=== PATIENT | male | born 1950 | race Caucasian/White ===

== ENCOUNTER 2020-05-05 12:58 | Outpatient (REF) | payer MEDICARE, SELFPAY | END 2020-05-05 12:59 | disposition home or self-care (01) | LOC: HO.BBR 12:58 | PROVIDERS: Visit Provider Internal Medicine | DX: D75.1 Secondary polycythemia (principal) | CPT/HCPCS: 36415; 85018; 99195 ==

== ENCOUNTER 2020-07-14 12:39 | Outpatient (REF) | payer MEDICARE, SELFPAY | END 2020-07-14 12:40 | disposition home or self-care (01) | LOC: HO.BBR 12:39 | PROVIDERS: Visit Provider Internal Medicine | DX: D75.1 Secondary polycythemia (principal) | CPT/HCPCS: 36415; 85014; 85018; 99195 ==

== ENCOUNTER 2020-09-22 12:55 | Outpatient (REF) | payer MEDICARE, SELFPAY | END 2020-09-22 12:56 | disposition home or self-care (01) | LOC: HO.BBR 12:55 | PROVIDERS: Visit Provider Internal Medicine | DX: D75.1 Secondary polycythemia (principal) | CPT/HCPCS: 36415; 85014; 85018; 99195 ==

== ENCOUNTER 2020-12-01 13:13 | Outpatient (REF) | payer MEDICARE, SELFPAY | END 2020-12-01 13:14 | disposition home or self-care (01) | LOC: HO.BBR 13:13 | PROVIDERS: Visit Provider Internal Medicine | DX: D75.1 Secondary polycythemia (principal) | CPT/HCPCS: 85018; 99195 ==

== ENCOUNTER 2021-02-06 13:04 | Outpatient (REF) | payer MEDICARE, SELFPAY | END 2021-02-06 13:05 | disposition home or self-care (01) | LOC: HO.BBR 13:04 | PROVIDERS: Visit Provider Internal Medicine | DX: D75.1 Secondary polycythemia (principal) | CPT/HCPCS: 85014; 85018; 99195 ==

== ENCOUNTER 2021-04-06 13:54 | Outpatient (REF) | payer MEDICARE, SELFPAY | END 2021-04-06 13:55 | disposition home or self-care (01) | LOC: HO.BBR 13:54 | PROVIDERS: Visit Provider Internal Medicine | DX: D75.1 Secondary polycythemia (principal) | CPT/HCPCS: 85014; 85018; 99195 ==

== ENCOUNTER 2021-04-16 13:15 | Outpatient (REF) | payer MEDICARE, SELFPAY | END 2021-04-16 13:16 | disposition home or self-care (01) | LOC: HO.BBR 13:15 | PROVIDERS: Visit Provider Internal Medicine | DX: D75.1 Secondary polycythemia (principal) | CPT/HCPCS: 85018; 99195 ==

== ENCOUNTER 2021-06-16 12:32 | Outpatient (REF) | payer MEDICARE, SELFPAY | END 2021-06-16 12:33 | disposition home or self-care (01) | LOC: HO.BBR 12:32 | PROVIDERS: Visit Provider Internal Medicine | DX: D75.1 Secondary polycythemia (principal) | CPT/HCPCS: 85018; 99195 ==

== ENCOUNTER 2021-08-17 13:03 | Outpatient (REF) | payer MEDICARE, SELFPAY | END 2021-08-17 13:04 | disposition home or self-care (01) | LOC: HO.BBR 13:03 | PROVIDERS: Visit Provider Internal Medicine | DX: Z13.89 Encounter for screening for other disorder (principal) ==

== ENCOUNTER 2021-10-19 12:54 | Outpatient (REF) | payer MEDICARE, SELFPAY | END 2021-10-19 12:55 | disposition home or self-care (01) | LOC: HO.BBR 12:54 | PROVIDERS: Visit Provider Internal Medicine | DX: D75.1 Secondary polycythemia (principal) | CPT/HCPCS: 85018; 99195 ==

== ENCOUNTER 2021-12-21 12:55 | Outpatient (REF) | payer MEDICARE, SELFPAY | END 2021-12-21 12:56 | disposition home or self-care (01) | LOC: HO.BBR 12:55 | PROVIDERS: Visit Provider Internal Medicine | DX: D75.1 Secondary polycythemia (principal) | CPT/HCPCS: 85018; 99195 ==

== ENCOUNTER 2022-02-16 12:33 | Outpatient (REF) | payer MEDICARE, SELFPAY | END 2022-02-16 12:34 | disposition home or self-care (01) | LOC: HO.BBR 12:33 | PROVIDERS: Visit Provider Internal Medicine | DX: D75.1 Secondary polycythemia (principal) | CPT/HCPCS: 85014; 85018; 99195 ==

== ENCOUNTER 2022-05-24 12:58 | Outpatient (REF) | payer MEDICARE, SELFPAY | END 2022-05-24 12:59 | disposition home or self-care (01) | LOC: HO.BBR 12:58 | PROVIDERS: Visit Provider Internal Medicine | DX: D75.1 Secondary polycythemia (principal) | CPT/HCPCS: 85018; 99195 ==

== ENCOUNTER 2022-08-23 12:36 | Outpatient (REF) | payer MEDICARE, SELFPAY | END 2022-08-23 12:37 | disposition home or self-care (01) | LOC: HO.BBR 12:36 | PROVIDERS: Visit Provider Internal Medicine | DX: D75.1 Secondary polycythemia (principal) | CPT/HCPCS: 85014; 85018; 99195 ==

== ENCOUNTER 2022-11-22 12:57 | Outpatient (REF) | payer MEDICARE, SELFPAY | END 2022-11-22 12:58 | disposition home or self-care (01) | LOC: HO.BBR 12:57 | PROVIDERS: Visit Provider Internal Medicine | DX: D75.1 Secondary polycythemia (principal) | CPT/HCPCS: 85014; 85018; 99195 ==

== ENCOUNTER 2023-02-15 13:00 | Outpatient (AMB) | payer MEDICARE, SELFPAY ==
--- NOTE | 2023-02-15 13:07 | A.OFFPC_ITS ---
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 Required: No Accompanied by: Self / Same As Patient Allergies No Known Allergies Allergy (Verified 02/15/23 14:01) Medication List - Last Reconciled 02/15/23 by Micah Auguste CNP albuterol sulfate 90 mcg/actuation 2 puffs inhalation Q6H PRN apixaban (Eliquis) 5 mg PO BID atorvastatin 80 mg PO DAILY hydroxyurea 500 mg PO DAILY tamsulosin 0.4 mg PO BEDTIME umeclidinium-vilanterol 62.5-25 mcg/actuation (Anoro Ellipta) 1 inh inhalation DAILY Tobacco use date assessed: 02/15/23 Fall risk assessment: No Falls in past year Last assessed Fall Risk: 02/15/23 Dental Screening Dental Screen Date: 02/15/23 Did you have a dental visit in the last 12 months?: No Did you have a dental problem in the last 6 months where you did not have access to dental care?: No Was dental information given to patient?: Yes HPI HPI Comments History of Present Illness Details 72-year-old male presents to critical access hospital care. He notes he was last evaluated by his former PCP at [facility] in [place], [place] 3 years. He does not recall the last time he had routine blood work done. He reports PMH significant for polycythemia vera, COPD, HLD, enlarged prostate, and arrhythmia. He notes the has been taking his medications as prescribed. He is on Hydroxyurea for polycythemia vera and has been going to [facility] [place] blood withdrawal every 12 weeks. He states he has been smoking cigarette for the past 60 years. He smoked as many as 3 packs daily for 4-5 years in the 1980s and 1990s. He reports history of smoking a pack and half to 2 packs for 30 years. He states he smokes a maximum of 8 cigarettes daily in the past 2 months. [facility]LY [facility] Medical History (Updated 02/15/23 @ 14:39 by Micah Auguste CNP) COPD (chronic obstructive pulmonary disease) Stroke Surgical History (Updated 02/15/23 @ 13:25 by Amy Ragsdale MA) H/O right knee surgery Family History (Updated 02/15/23 @ 13:26 by Amy Ragsdale MA) Mother Hodgkin disease Father Clotting disorder Social History Housing: House Patient Tobacco Use Status: Current everyday Tobacco user Cigarettes Per Day: 8 Years Smoked: 60 e-Cigarette/Vaping Use: Never Used service: No Current occupational status: retired Cognitive needs: No Hearing needs: No Vision needs: No Questionnaire PHQ-9 Over the last 2 weeks, how often have you been bothered by any of the following problems? 1. Little interest or pleasure in doing things: not at all 2. Feeling down, depressed, or hopeless: not at all 3. Trouble falling or staying asleep, or sleeping too much: not at all 4. Feeling tired or having little energy: not at all 5. Poor appetite or overeating: not at all 6. Feeling bad about yourself - or that you are a failure or have let yourself or your family down: not at all 7. Trouble concentrating on things, such as reading the newspaper or watching television: not at all 8. Moving or speaking so slowly that other people could have noticed. Or the opposite - being so fidgety or restless that you have been moving around a lot more than usual: not at all 9. Thoughts that you would be better off or of hurting yourself in some way: not at all Total score: 0 Depression Screening Interpretation: Negative Source: Developed by Drs. Leon Brandon, Maria G Funes, Sotero Ryan and colleagues, with an educational maryana from [employer]. Thrive Questionnaire Date Thrive assessed: 02/15/23 I am a: Patient What is your living situation today?: I have a steady place to live Within the past 12 months, did the food you bought not last and you didn't have the money to get more?: Never true Within the past 12 months, did you worry whether your food would run out before you got money to buy more?: Never true Do you have trouble paying for medicines?: No Do you have trouble getting transportation to medical appointments?: No Do you have trouble paying your heating and electricity bill?: No Do you have trouble taking care of your child, family member or friend?: No Do you have trouble with day-to-day activities such as bathing, preparing meals, shopping, managing finances, etc.?: No Are you currently unemployed and looking for a job?: No Are you interested in more education?: No Please select the resources that you would like help with: None Currently or been in a relationship where the following occur: no concerns reported AUDIT C Alcohol Use Questionnaire (AUDIT-C) 1. How often do you have a drink containing alcohol?: Never 3. How often do you have six or more drinks on one occasion?: Never Total Score: 0 CINDY-7 AMB Questionnaire CINDY-7 Date CINDY - 7 assessed: 02/15/23 Feeling nervous, anxious, or on edge: 0 = Not at all Not being able to stop or control worryin = Not at all Worrying too much about different things: 0 = Not at all Trouble relaxin = Not at all Being so restless that it is hard to sit still: 0 = Not at all Becoming easily annoyed or irritable: 0 = Not at all Feeling afraid as if something awful might happen: 0 = Not at all Total CINDY-7 score (0-4 normal; 5-9 mild; 10-14 moderate; 15-21 severe): 0 Source: Developed by Drs. Leon Brandon, Maria G Funes, Sotero Ryan and colleagues, with an educational maryana from [employer]. Review of Systems Const Details: Const Denies chills, Denies fatigue, Denies fever(s), Denies headache(s) and Denies weakness ENT Denies dizziness and Denies headache(s) Card Denies chest pain, Denies lightheadedness, Denies dyspnea and Denies other (Palpitations) Resp Denies cough, Denies dyspnea, Denies wheezing and Denies other ( shortness of breath) GI Denies abdominal pain, Denies melena, Denies hematochezia, Denies change in bowel habits, Denies dyspepsia and Denies nausea Denies hematuria and Denies dysuria Musc Denies abnormal gait, Denies myalgias, Denies arthralgias, Denies numbness and Denies tingling Skin/Breast Denies rash, Denies unusual bruising and Denies wounds Neuro Denies abnormal gait, Denies dizziness, Denies headache(s), Denies memory loss, Denies numbness, Denies Sensory deficit (Neuro), Denies tingling and Denies weakness Psych Denies anxiety, Denies depression, Denies memory loss Endo Denies cold intolerance, Denies fatigue, Denies heat intolerance, Denies polydipsia and Denies polyuria Aller/Immun Denies wheezing Physical exam (Primary Care) Vital Signs: Last Vital Signs Temp 97.5 F 02/15/23 13:10 Pulse 82 02/15/23 13:10 Resp 13 02/15/23 13:10 BP 140/74 H 02/15/23 13:10 Pulse Ox 94 02/15/23 13:10 Oxygen Delivery Method Room Air 02/15/23 13:10 BMI result Body Mass Index 35.3 Tobacco/Smoking Status: Tobacco use Status Tobacco use date assessed 02/15/23 02/15/23 13:27 Patient Tobacco Use Status Current everyday Tobacco 02/15/23 13:27 e-Cigarette/Vaping Use Never Used 02/15/23 13:27 PHQ-9: PHQ-9 Score PHQ-9: Total score 0 02/15/23 13:27 Depression Screening Interpretation: Negative Thrive Assessment: Date of Thrive Assessment Date Thrive assessed 02/15/23 02/15/23 13:27 Currently or been in a relationship where the following occur: no concerns reported Const Other: General: no acute distress and well developed Nutritional Appearance: well nourished Orientation/consciousness: patient oriented x3 HENMT Head: Yes normocephalic and Yes atraumatic Eyes General: appearance normal, both eyes and all related structures Pupils: Equal, round and reactive pupils present EOM: EOMs intact bilaterally Resp Effort & Inspection: normal respiratory effort Auscultation: clear to auscultation bilaterally Cardio Rate: regular rate Rhythm: regular rhythm Heart sounds: S1 normal heart sound present, S2 normal heart sound present, no gallops, no murmurs and no rubs GI Palpation (GI): No Abdominal aortic bruit present, Soft to palpation, nontender, No hepatosplenomegaly present and No Rebound tenderness present Auscultation: normal bowel sounds General: Yes no CVA tenderness Back/Spine/Pelvis Back: no CVA tenderness Cervical Spine: cervical ROM normal and No Cervical spine tenderness Thoracic/Lumbar Spine: thoraco-lumbar ROM normal, No pain with thoraco-lumbar ROM, No thoracic spinal tenderness and No lumbar spinal tenderness Extrem General: Yes normal to inspection, No edema and No calf tenderness Skin General: warm and dry. Normal skin color. Normal skin turgor Lesions: no lesions Rashes: no rashes Trauma: no lacerations or abrasions Wounds: no wounds Nails: normal Neuro General: patient oriented x3, gait normal and no focal neuro deficit Cranial nerves: Yes Equal, round and reactive pupils present Cognition (Neuro): normal cognition Gait exam (Neuro): Normal gait present Sensory Exam: No Sensory deficit (Neuro) Psych Appearance: grossly normal Affect: normal affect Attitude: cooperative Thought process: Normal thought process present Assessment and Plan Assessment & Plan (1) Polycythemia vera: Code(s): D45 - Polycythemia vera Plan: He notes history of polycythemia vera, on Hydroxyurea, and has been going to [facility] for blood withdrawal every 12 weeks. Continue with current treatment regimen Follow-up with concerns or symptoms Verbalized understanding and agreed with treatment plan. (2) COPD (chronic obstructive pulmonary disease): Code(s): J44.9 - Chronic obstructive pulmonary disease, unspecified Plan: Reports h/o COPD No acute symptoms Albuterol and Anoro Ellipta inhalers as prescribed Follow-up with symptoms or concerns Verbalized understanding and agreed with treatment plan (3) BPH (benign prostatic hyperplasia): Code(s): N40.0 - Benign prostatic hyperplasia without lower urinary tract symptoms Plan: Reports history of BPH, on tamsulosin No acute symptoms Continue with current treatment regimen Follow-up with new or worsening symptoms Verbalized understanding and agreed with treatment plan. (4) Hyperlipidemia: Code(s): E78.5 - Hyperlipidemia, unspecified Plan: Reports history of high cholesterol, on atorvastatin Atorvastatin as prescribed Routine labs, including lipid panel ordered. Will review results and make changes to his care plan if warranted Follow-up in 1 month for a physical exam and review of lab results Verbalized understanding and agreed with treatment plan. (5) Smoking: Code(s): F17.200 - Nicotine dependence, unspecified, uncomplicated Plan: He states he has been smoking cigarette for the past 60 years. He smoked as many as 3 packs daily for 4-5 years in the 1980s and . He reports history of smoking a pack and half to 2 packs for 30 years. He states he smokes a maximum of 8 cigarettes daily in the past 2 months. Declines treatment for smoking cessation Smoking cessation encouraged May contact his PCP for treatment a smoking cessation Verbalized understanding and agreed with plan. (6) Laboratory tests ordered as part of a complete physical exam (CPE): Code(s): Z00.00 - Encounter for general adult medical examination without abnormal findings Plan: Fasting labs ordered as part of a complete physical exam. Advised to fast for at least 10 hours before getting labs drawn. May drink water Verbalized understanding and agreed with treatment plan. Orders: Orders Comprehensive [place]. Panel Fast Today Z00.00 - Encounter for general adult medical examination without abnormal findings Lipid Panel Today Z00.00 - Encounter for general adult medical examination without abnormal findings PSA, Ultra Sensitive Today Z00.00 - Encounter for general adult medical examination without abnormal findings TSH reflex Free T4 Today Z00.00 - Encounter for general adult medical examination without abnormal findings Complete Blood Count Auto Diff Today Z00.00 - Encounter for general adult medical examination without abnormal findings UA CC w/rflx Micro + Cult Today Z00.00 - Encounter for general adult medical examination without abnormal findings Coding Level of Care Code New Pt Level 3 (06805) Diagnoses Polycythemia vera D45 COPD (chronic obstructive pulmonary disease) J44.9 BPH (benign prostatic hyperplasia) N40.0 Hyperlipidemia E78.5 Smoking F17.200 Laboratory tests ordered as part of a complete physical exam (CPE) Z00.00
[2023-02-15 13:10] VITALS: BP 140/74; PULSE 82; RESP 13; TEMP 36.4; O2SAT 94; BMI 35.3
== END 2023-02-15 14:30 | disposition home or self-care (01) ==
PROVIDERS: PCP Nurse Practitioner Family; Visit Provider Nurse Practitioner Family
DX: D45 Polycythemia vera (principal); J44.9 Chronic obstructive pulmonary disease, unspecified; F17.210 Nicotine dependence, cigarettes, uncomplicated; N40.0 Benign prostatic hyperplasia without lower urinary tract symptoms; E78.5 Hyperlipidemia, unspecified
CPT/HCPCS: 99203

== ENCOUNTER 2023-02-28 12:56 | Outpatient (REF) | payer MEDICARE, SELFPAY | END 2023-02-28 12:57 | disposition home or self-care (01) | LOC: HO.BBR 12:56 | PROVIDERS: PCP Nurse Practitioner Family; Visit Provider Internal Medicine | DX: D75.1 Secondary polycythemia (principal) | CPT/HCPCS: 85018; 99195 ==

== ENCOUNTER 2023-03-11 11:33 | Outpatient (REF) | payer MEDICARE, SELFPAY ==
[2023-03-11 14:23] LABS: MANUAL DIFF FLAG NO
[2023-03-11 14:26] LABS: Basophils Absolute Auto 0.1 X10*3/uL (0.0-0.2); Basophils Percent Auto 0.8 % (0-2); Eosinophils Absolute Auto 0.1 X10*3/uL (0.0-0.4); Eosinophils Percent Auto 0.5 % (0-4); Hematocrit 48.8 % (42.0-52.0); Hemoglobin 15.3 g/dl (14.0-18.0); Imm Gran Abs Auto 0.04 X10*3/uL (0.00-0.03); Imm Gran Pct Auto 0.4 % (0.0-0.4); Lymphocytes Percent Auto 29.7 % (20-40); Mean Corpuscular HGB Conc 31.4 g/dl (31.0-36.0); Mean Corpuscular Hemoglobin 32.3 pg (27.0-33.0); Mean Platelet Volume 10.1 fL (9.4-12.4); Monocytes Percent Auto 9.8 % (2-11); Neutrophils Percent Auto 58.8 % (45-73); Platelet Count 406 X10*3/uL (160-400); Red Blood Count 4.74 X10*6/uL (4.60-5.80); Red Cell Distribution Width 16.8 % (11.0-16.0); White Blood Count 10.2 X10*3/uL (4.8-10.8)
[2023-03-11 14:51] LABS: Alanine Aminotransferase 12 U/L (0-40); Alkaline Phosphatase 106 U/L (39-117); Anion Gap 16 (12-20); Aspartate Amino Transferase 21 U/L (5-37); Bilirubin Total 1.3 mg/dL (0.0-1.0); Blood Urea Nitrogen 14 mg/dL (9-16); Calcium 9.5 mg/dL (8.4-10.2); Carbon Dioxide 19 mmol/L (22-29); Chloride 109 mmol/L (96-108); Cholesterol 102 mg/dL (<200); Estimated Glomerular Filt Rate > 60; Glucose Fasting 112 mg/dL (60-99); HDL Cholesterol 30 mg/dL (>40); LDL Cholesterol Calculated 47 mg/dL (<100); Potassium 4.6 mmol/L (3.3-5.1); Sodium 139 mmol/L (135-145); Total Protein 7.6 g/dL (6.5-8.0); Triglycerides 126 mg/dL (<150)
[2023-03-11 15:07] LABS: TSH reflex Free T4 1.21 uIU/mL (0.32-4.0)
[2023-03-19 11:59] LABS: PSA, Ultra Sensitive 0.87 ng/mL
== END 2023-03-11 11:34 | disposition home or self-care (01) ==
LOC: HO.WFDLDS 11:33
PROVIDERS: Visit Provider Nurse Practitioner Family
DX: Z00.00 Encounter for general adult medical examination without abnormal findings (principal); Z12.5 Encounter for screening for malignant neoplasm of prostate
CPT/HCPCS: 36415; 80053; 80061; 84153; 84443; 85025

== ENCOUNTER 2023-03-15 13:58 | Outpatient (REF) | payer MEDICARE, SELFPAY ==
[2023-03-15 14:16] LABS: Appearance Urine Clear; Color Urine Yellow; Glucose Urine UA Negative (Negative); Leukocyte Esterase Urine Negative (Negative); Nitrite Urine Negative (Negative); Specific Gravity - Urine 1.025 (1.005-1.025); Urine Blood Negative (Negative); Urine Ketones Negative (Negative); Urine Protein Negative (Neg-Trace)
== END 2023-03-15 13:59 | disposition home or self-care (01) ==
LOC: HO.LNP 13:58
PROVIDERS: Visit Provider Nurse Practitioner Family
DX: Z00.00 Encounter for general adult medical examination without abnormal findings (principal)
CPT/HCPCS: 81003

== ENCOUNTER 2023-03-28 15:01 | Outpatient (AMB) | payer MEDICARE, SELFPAY ==
--- NOTE | 2023-03-28 15:06 | A.OFFPC_ITS ---
Vital Signs 03/28/23 15:08 Height 5 ft 8 in Weight 236 lb BMI 35.9 BP 124/70 Blood Pressure Location Rt brachial Respiration 16 Pulse 75 Pulse Source Pulse Oximeter Temp 97.0 F Temp Source Oral Pulse Oximetry (%) 95 Oxygen Delivery Method Room Air Intake Visit Reasons: 1 mth follow up CPE Intake Note: Patient is here for a physical today. Allergies No Known Allergies Allergy (Verified 03/28/23 15:24) Medication List - Last Reconciled 03/28/23 by Micah Auguste CNP albuterol sulfate 90 mcg/actuation 2 puffs inhalation Q6H PRN apixaban (Eliquis) 5 mg PO BID atorvastatin 80 mg PO DAILY hydroxyurea 500 mg PO DAILY tamsulosin 0.4 mg PO BEDTIME umeclidinium-vilanterol 62.5-25 mcg/actuation (Anoro Ellipta) 1 inh inhalation DAILY Tobacco use date assessed: 03/28/23 Fall risk assessment: No Falls in past year Last assessed Fall Risk: 03/28/23 Dental Screening Dental Screen Date: 03/28/23 Did you have a dental visit in the last 12 months?: No Did you have a dental problem in the last 6 months where you did not have access to dental care?: No Was dental information given to patient?: Patient declined HPI HPI Comments History of Present Illness Details 73-year-old male presents for a complete physical exam. He reports PMH significant for polycythemia vera, COPD, HLD, enlarged prostate, and arrhythmia. He has history of CVA. He notes the has been taking his medications as prescribed. He is on Hydroxyurea for polycythemia vera and has been going to [facility] for blood withdrawal every 12 weeks. He is on Eliquis. He established care last month. Routine fasting labs and urinalysis were ordered. He offers no complaints and denies acute symptoms. Uses a walker for long distances. He notes that he is followed by [facility] cardiology and pulmonology, and [facility] hematology. He states that he has never had colonoscopy and declines testing. He states he has been smoking cigarette for the past 60 years. He smoked as many as 3 packs daily for 4-5 years in the 1980s and 1990s. He reports history of smoking a pack and half to 2 packs for 30 years. He states he smokes a maximum of 8 cigarettes daily in the past 2 months. He reports annual lungs CT for lung cancer screening, last imaging was in July, at [facility]: normal. [facility]LY [facility] Medical History (Updated 03/28/23 @ 15:56 by Micah Auguste CNP) Stroke COPD (chronic obstructive pulmonary disease) Surgical History (Updated 02/15/23 @ 13:25 by Amy Ragsdale MA) H/O right knee surgery Family History (Updated 02/15/23 @ 13:26 by Amy Ragsdale MA) Mother Hodgkin disease Father Clotting disorder Social History Housing: House Patient Tobacco Use Status: Current everyday Tobacco user Cigarettes Per Day: 8 Years Smoked: 60 e-Cigarette/Vaping Use: Never Used service: No Current occupational status: retired Cognitive needs: No Hearing needs: No Vision needs: No Questionnaire Thrive Questionnaire Date Thrive assessed: 02/15/23 CINDY-7 AMB Questionnaire CINDY-7 Date CINDY - 7 assessed: 02/15/23 Source: Developed by Drs. Leon Brandon, Maria G Funes, Sotero Ryan and colleagues, with an educational maryana from [email or web address] Review of Systems Const Details: Denies chills, Denies fatigue, Denies fever(s), Denies headache(s) and Denies weakness HEENT Denies change in vision, Denies dizziness, Denies headache(s), Denies hearing loss, Denies nasal congestion, Denies sinus pain, Denies sinus pressure and Denies sore throat Card Denies chest pain, Denies lightheadedness, Denies dyspnea and Denies other (palpitations) Resp Denies cough, Denies dyspnea and Denies wheezing GI Denies abdominal pain, Denies melena, Denies hematochezia, Denies change in bowel habits, Denies dyspepsia and Denies nausea Denies hematuria and Denies dysuria Musc Denies abnormal gait, Denies myalgias, Denies arthralgias, Denies numbness and Denies tingling Skin/Breast Denies rash, Denies unusual bruising and Denies wounds Neuro Denies abnormal gait, Denies dizziness, Denies headache(s), Denies memory loss, Denies numbness, Denies Sensory deficit (Neuro), Denies tingling and Denies weakness Psych Denies anxiety, Denies depression and Denies memory loss Endo Denies cold intolerance, Denies fatigue, Denies heat intolerance, Denies polydipsia and Denies polyuria Ilir/Lymph Denies easy bleeding and Denies easy bruising Aller/Immun Denies wheezing Physical exam (Primary Care) BMI result Body Mass Index 35.9 Tobacco/Smoking Status: Tobacco use Status Tobacco use date assessed 02/15/23 03/28/23 15:07 Patient Tobacco Use Status Current everyday Tobacco 03/28/23 15:07 e-Cigarette/Vaping Use Never Used 03/28/23 15:07 Thrive Assessment: Date of Thrive Assessment Date Thrive assessed 02/15/23 03/28/23 15:07 Const Other: General: no acute distress, well developed, alert and awake Nutritional Appearance: well nourished Orientation/consciousness: patient oriented x3 HENMT Head: Yes normocephalic and Yes atraumatic Ears: hearing grossly normal bilaterally and TM's normal bilaterally General nose exam: Normal external nose present and Normal nares present Mouth: Normal oral and palatal mucosa present and moist mucous membranes Teeth and gingiva: dentition normal Throat: Yes oropharynx normal Eyes Pupils: Equal, round and reactive pupils present and Pupil accommodation reflex normal EOM: EOMs intact bilaterally Neck Neck: Yes normal visual inspection, Yes no lymphadenopathy and Yes trachea midline Thyroid: Thyroid normal Carotids: no bruits Lymphatic: no lymphadenopathy noted Chest Chest palpation & inspection: normal inspection of the chest Resp Effort & Inspection: normal respiratory effort Auscultation: clear to auscultation bilaterally Cardio Rate: regular rate Rhythm: regular rhythm Heart sounds: S1 normal heart sound present, S2 normal heart sound present, no gallops, no murmurs and no rubs Bruits: no abdominal aortic bruits and no carotid bruits GI Palpation (GI): No Abdominal aortic bruit present, Soft to palpation, nontender, No hepatosplenomegaly present and No Rebound tenderness present Auscultation: normal bowel sounds General: Yes no CVA tenderness Back/Spine/Pelvis Back: no CVA tenderness Cervical Spine: cervical ROM normal and No Cervical spine tenderness Thoracic/Lumbar Spine: thoraco-lumbar ROM normal, No pain with thoraco-lumbar ROM, No thoracic spinal tenderness and No lumbar spinal tenderness Skin General: warm and dry. Normal skin color. Normal skin turgor Lesions: no lesions Rashes: no rashes Trauma: no lacerations or abrasions Wounds: no wounds Nails: normal Neuro General: patient oriented x3, gait normal and CN's II-XI intact bilaterally Cranial nerves: Yes Equal, round and reactive pupils present Cognition (Neuro): normal cognition Gait exam (Neuro): Normal gait present Motor exam (neuro): 5/5 motor strength present throughout Sensory Exam: No Sensory deficit (Neuro) Deep tendon reflexes (DTR's): Right patellar reflex intensity grade: 2+ and Left patellar reflex intensity grade: 2+ Extrem General: Yes normal to inspection, No edema and No calf tenderness Psych Appearance: grossly normal Affect: normal affect Attitude: cooperative Thought process: Normal thought process present Assessment and Plan Assessment & Plan (1) Normal physical examination, routine: Code(s): Z00.00 - Encounter for general adult medical examination without abnormal findings Plan: No significant physical restrictions or limitations noted Advised to continue to ambulate with his walker for long distances Continue with current treatment regimen Follow-up in 3 months for health maintenance. Return sooner with symptoms or concerns Verbalized understanding and agreed with treatment plan. (2) Elevated fasting glucose: Code(s): R73.01 - Impaired fasting glucose Plan: Recent labs reviewed with the patient. Fasting blood glucose was elevated, 112. Will repeat fasting glucose. Advised to fast for 10-12 hours before getting blood work done. Will review results and make changes to his care plan if warranted. Verbalized understanding and agreed with the treatment plan. (3) Hyperlipidemia: Code(s): E78.5 - Hyperlipidemia, unspecified Plan: Normal lipid levels except for low HDL, 30. Continue to take atorvastatin as prescribed. Advised to limit foods high in saturated fat and avoid foods high trans fat. Routine exercise encouraged. Verbalized understanding and agreed with treatment plan. (4) Obesity (BMI 35.0-39.9 without comorbidity): Code(s): E66.9 - Obesity, unspecified Plan: He weighs 236 lb, BMI is 35.9 Declines dietitian/group leader semiconductor processing or weight management referral He notes that he will make healthy dietary changes He admits to not exercising. Encouraged to expand his activities He may inform his provider if he changes his mind on group leader [employer] processing/dietitian or weight management referral Follow-up with symptoms or concerns Verbalized understanding and agreed with treatment plan. Orders: Orders Glucose Fasting Today R73.01 - Impaired fasting glucose Coding Level of Care Code Est Pt Prev Care >65y(93330) Diagnoses Normal physical examination, routine Z00.00 Elevated fasting glucose R73.01 Hyperlipidemia E78.5 Obesity (BMI 35.0-39.9 without comorbidity) E66.9
[2023-03-28 15:08] VITALS: BP 124/70; PULSE 75; RESP 16; TEMP 36.1; O2SAT 95; BMI 35.9
== END 2023-03-28 15:52 | disposition home or self-care (01) ==
PROVIDERS: PCP Nurse Practitioner Family; Visit Provider Nurse Practitioner Family
DX: Z00.00 Encounter for general adult medical examination without abnormal findings (principal); E66.9 Obesity, unspecified; Z68.35 Body mass index [BMI] 35.0-35.9, adult; R73.01 Impaired fasting glucose; E78.5 Hyperlipidemia, unspecified; F17.210 Nicotine dependence, cigarettes, uncomplicated
CPT/HCPCS: 99397

== ENCOUNTER 2023-05-30 12:50 | Outpatient (REF) | payer MEDICARE, SELFPAY | END 2023-05-30 12:51 | disposition home or self-care (01) | LOC: HO.BBR 12:50 | PROVIDERS: PCP Nurse Practitioner Family; Visit Provider Internal Medicine | DX: D75.1 Secondary polycythemia (principal) | CPT/HCPCS: 85014; 85018; 99195 ==

== ENCOUNTER 2023-07-07 11:39 | Outpatient (REF) | payer MEDICARE, SELFPAY ==
[2023-07-07 14:43] LABS: Glucose Fasting 114 mg/dL (60-99)
== END 2023-07-07 11:40 | disposition home or self-care (01) ==
LOC: HO.WFDLDS 11:39
PROVIDERS: Visit Provider Nurse Practitioner Family
DX: R73.01 Impaired fasting glucose (principal)
CPT/HCPCS: 36415; 82947

== ENCOUNTER 2023-07-11 14:55 | Outpatient (AMB) | payer MEDICARE, SELFPAY ==
--- NOTE | 2023-07-11 15:00 | MHC.PC.OV ---
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 Accompanied by: Self / Same As Patient Allergies No Known Allergies Allergy (Verified 07/11/23 15:17) Medication List - Last Reconciled 07/11/23 by Micah Auguste CNP albuterol sulfate 90 mcg/actuation 2 puffs inhalation Q6H PRN apixaban (Eliquis) 5 mg PO BID atorvastatin 80 mg PO DAILY hydroxyurea 500 mg PO DAILY tamsulosin 0.4 mg PO BEDTIME umeclidinium-vilanterol 62.5-25 mcg/actuation (Anoro Ellipta) 1 inh inhalation DAILY Tobacco use date assessed: 07/11/23 Last assessed Fall Risk: 07/11/23 Dental Screening Dental Screen Date: 07/11/23 Did you have a dental visit in the last 12 months?: No Did you have a dental problem in the last 6 months where you did not have access to dental care?: No Was dental information given to patient?: Patient declined HPI HPI Comments History of Present Illness Details 73-year-old male presents for health maintenance follow-up He admits to taking his medications as prescribed without adverse reactions He notes that he follows cardiology, pulmonology, and oncology/hematology as planned He reports weak urine stream and difficulty initiating urine. No pain or discharge with urination. He notes that he stopped taking tamsulosin 2 weeks ago. He thought that the medication was a sleep aid. He notes his symptoms before he stopped the medication and has not noticed an changes. He has not been evaluated by urology since his old PCP retired 5-6 years ago [facility] Medical History Stroke COPD (chronic obstructive pulmonary disease) Surgical History H/O right knee surgery Family History Mother Hodgkin disease Father Clotting disorder Social History Housing: House Patient Tobacco Use Status: Current everyday Tobacco user Cigarettes Per Day: 8 Years Smoked: 60 e-Cigarette/Vaping Use: Never Used service: No Current occupational status: retired Cognitive needs: No Hearing needs: No Vision needs: Yes Questionnaire Thrive Questionnaire Date Thrive assessed: 02/15/23 CINDY-7 AMB Questionnaire CINDY-7 Date CINDY - 7 assessed: 02/15/23 Source: Developed by Drs. Leon Brandon, Maria G Funes, Sotero Ryan and colleagues, with an educational maryana from [employer]. Review of Systems Const Details: Const Denies chills, Denies fatigue, Denies fever(s), Denies headache(s) and Denies weakness ENT Denies dizziness and Denies headache(s) Card Denies chest pain, Denies lightheadedness, Denies dyspnea and Denies other (Palpitations) Resp Denies cough, Denies dyspnea, Denies wheezing and Denies other ( shortness of breath) GI Denies abdominal pain, Denies melena, Denies hematochezia, Denies change in bowel habits, Denies dyspepsia and Denies nausea Reports as per HPI Musc Denies abnormal gait, Denies myalgias, Denies arthralgias, Denies numbness and Denies tingling Skin/Breast Denies rash, Denies unusual bruising and Denies wounds Neuro Denies abnormal gait, Denies dizziness, Denies headache(s), Denies memory loss, Denies numbness, Denies Sensory deficit (Neuro), Denies tingling and Denies weakness Psych Denies anxiety, Denies depression, Denies memory loss Endo Denies cold intolerance, Denies fatigue, Denies heat intolerance, Denies polydipsia and Denies polyuria Aller/Immun Denies wheezing Physical exam (Primary Care) Vital Signs: Last Vital Signs Temp 97.6 F 07/11/23 15:06 Pulse 88 07/11/23 15:06 Resp 14 07/11/23 15:06 BP 122/70 07/11/23 15:06 Pulse Ox 96 07/11/23 15:06 Oxygen Delivery Method Room Air 07/11/23 15:06 BMI result Body Mass Index 34.4 Tobacco/Smoking Status: Tobacco use Status Tobacco use date assessed 07/11/23 07/11/23 15:15 Patient Tobacco Use Status Current everyday Tobacco 07/11/23 15:01 e-Cigarette/Vaping Use Never Used 07/11/23 15:01 Thrive Assessment: Date of Thrive Assessment Date Thrive assessed 02/15/23 07/11/23 15:01 Const Other: General: no acute distress and well developed Nutritional Appearance: well nourished Orientation/consciousness: patient oriented x3 HENMT Head: Yes normocephalic and Yes atraumatic Eyes General: appearance normal, both eyes and all related structures Pupils: Equal, round and reactive pupils present EOM: EOMs intact bilaterally Resp Effort & Inspection: normal respiratory effort Auscultation: clear to auscultation bilaterally Cardio Rate: regular rate Rhythm: regular rhythm Heart sounds: S1 normal heart sound present, S2 normal heart sound present, no gallops, no murmurs and no rubs GI Palpation (GI): No Abdominal aortic bruit present, Soft to palpation, nontender, No hepatosplenomegaly present and No Rebound tenderness present Auscultation: normal bowel sounds General: Yes no CVA tenderness Back/Spine/Pelvis Back: no CVA tenderness Cervical Spine: cervical ROM normal and No Cervical spine tenderness Thoracic/Lumbar Spine: thoraco-lumbar ROM normal, No pain with thoraco-lumbar ROM, No thoracic spinal tenderness and No lumbar spinal tenderness Extrem General: Yes normal to inspection, No edema and No calf tenderness Skin General: warm and dry. Normal skin color. Normal skin turgor Neuro General: patient oriented x3, gait normal and no focal neuro deficit Cranial nerves: Yes Equal, round and reactive pupils present Cognition (Neuro): normal cognition Gait exam (Neuro): Normal gait present Sensory Exam: No Sensory deficit (Neuro) Psych Appearance: grossly normal Affect: normal affect Attitude: cooperative Thought process: Normal thought process present Assessment and Plan Assessment & Plan (1) BPH (benign prostatic hyperplasia): Code(s): N40.0 - Benign prostatic hyperplasia without lower urinary tract symptoms Plan: Urinary hesitancy Advised to resume taking tamsulosin as prescribed. He notes he currently has 2 months supply Referred to Urology Return with worsening or new symptoms Follow-up in 3 months for hyperlipidemia. Advised to get fasting blood work done before his next visit Verbalized understanding and agreed with treatment plan (2) Prediabetes: Code(s): R73.03 - Prediabetes Plan: His fasting glucose has been elevated numerous times A1c today is 6.0%, indicates prediabetes Advised to avoid carbohydrate rich foods such as rice, pasta, potato, and bread Routine exercise encouraged Verbalized understanding and agreed with the plan Orders: Orders AMB Hemoglobin A1c Today R73.03 - Prediabetes Lipid Panel 3 Months E78.5 - Hyperlipidemia, unspecified Referrals Urology Referral N40.0 - Benign prostatic hyperplasia without lower urinary tract symptoms Coding Level of Care Code Est Pt Level 4 (92643) Diagnoses BPH (benign prostatic hyperplasia) N40.0 Prediabetes R73.03
[2023-07-11 15:06] VITALS: BP 122/70; PULSE 88; RESP 14; TEMP 36.4; O2SAT 96; BMI 34.4
== END 2023-07-11 15:56 | disposition home or self-care (01) ==
PROVIDERS: PCP Nurse Practitioner Family; Visit Provider Nurse Practitioner Family
DX: N40.0 Benign prostatic hyperplasia without lower urinary tract symptoms (principal); R73.03 Prediabetes
CPT/HCPCS: 83036; 99214

== ENCOUNTER 2023-08-29 12:40 | Outpatient (REF) | payer MEDICARE, SELFPAY | END 2023-08-29 12:41 | disposition home or self-care (01) | LOC: HO.BBR 12:40 | PROVIDERS: PCP Nurse Practitioner Family; Visit Provider Internal Medicine | DX: D75.1 Secondary polycythemia (principal) | CPT/HCPCS: 85018; 99195 ==

== ENCOUNTER 2023-09-07 14:50 | Outpatient (AMB) | payer MEDICARE, SELFPAY ==
--- NOTE | 2023-09-07 15:05 | A.OFFVIS_ITS ---
Intake Intake Visit Reasons: BPH w/out lower UTI Intake Note: NEW Patient presents today to established treatment for BPH w/o out lower UTI: Meds- Tamsulosin Allergies to Antibiotic- No Known Allergies Blood Thinner- Eliquis Post Void Residual: 287 mL Sap Technical Developer Required: No Accompanied by: Self / Same As Patient Allergies No Known Allergies Allergy (Verified 09/07/23 15:14) Medication List - Last Reconciled 09/07/23 by Zoraida Gómez MD albuterol sulfate 90 mcg/actuation 2 puffs inhalation Q6H PRN apixaban (Eliquis) 5 mg PO BID atorvastatin 80 mg PO DAILY hydroxyurea 500 mg PO DAILY tamsulosin 0.8 mg (2 x 0.4 mg) PO BEDTIME umeclidinium-vilanterol 62.5-25 mcg/actuation (Anoro Ellipta) 1 inh inhalation DAILY HPI HPI Comments History of Present Illness Details Louie is a 73-year-old male who is here for evaluation for lower urinary tract symptoms. He complains of a weak stream. He has been prescribed tamsulosin 0.4 mg at bedtime. Comorbidity nicotine dependence. He denies gross hematuria or dysuria. AUA symptom score 16. The patient was unable to give a voided urine sample in the office. Bladder scan PVR is elevated 287 mL. Prostate exam-smooth mildly enlarged. No suspicious nodules. PSA testing reviewed 03/11/2023--0.87 ng/mL Plan: I have discussed evaluation with renal and bladder ultrasound, follow-up office cystoscopy. I have instructed him to increase the tamsulosin to 2 tablets (0.8 mL) daily. [facility], [facility] Medical History Stroke COPD (chronic obstructive pulmonary disease) Surgical History H/O right knee surgery Family History Mother Hodgkin disease Father Clotting disorder Social History Housing: House Patient Tobacco Use Status: Current everyday Tobacco user Cigarettes Per Day: 8 Years Smoked: 60 e-Cigarette/Vaping Use: Never Used service: No Current occupational status: retired Cognitive needs: No Hearing needs: No Vision needs: Yes Questionnaire AUA Symptom Score AUA Incomplete emptying - It does not feel like I empty my bladder all the way.: 1 - Less than 1 time in 5 Frequency - I have to go again less than two hours after I finish urinating.: 3 - About half the time Intermittency - I stop and start again several times when I urinate.: 5 - Almost always Urgency - It is hard to wait when I have to urinate.: 1 - Less than 1 time in 5 Weak stream - I have a weak urinary stream.: 5 - Almost always Straining - I have to push or strain to begin urination.: 0 - Not at all Nocturia - I get up to urinate after I go to bed until the time I get up in the morning.: 1 time AUA Symptom Score: 16 Source: Driss DOMINGO, Nirali MANDUJANO Jr, [place] MP, et al, and the Measurement Committee of the [place] [employer]. The [place] [employer] symptom index for benign prostatic hyperplasia. J Urol. 1992; 148: 9371-4314. Copyright 1992 [place] [employer] Review of Systems Const All systems reviewed & are unremarkable except as noted in HPI and below Reports no additional complaints Eyes Reports no additional complaints ENT Reports no additional complaints Card Reports no additional complaints Resp Reports no additional complaints GI Reports no additional complaints Reports as per HPI Musc Reports no additional complaints Skin/Breast Reports system reviewed and no additional complaints, except as documented Neuro Reports no additional complaints Psych Reports no additional complaints Endo Reports no additional complaints Ilir/Lymph Reports no additional complaints Aller/Immun Reports no additional complaints Physical Exam Const General: healthy appearing, no acute distress and well developed Nutritional Appearance: overweight Orientation/consciousness: patient oriented x3 HEENT Head: Yes normocephalic and Yes atraumatic Eyes Conjunctivae: conjunctivae normal Neck Neck: Yes normal visual inspection Chest Chest palpation & inspection: normal inspection of the chest Resp Effort & Inspection: normal respiratory effort Cardio Rate: regular rate GI Inspection: Yes normal to inspection Palpation (GI): Soft to palpation Other: Prostate Exam: Smooth mildly enlarged Skin General skin exam: no rashes or lesions noted Neuro General: patient oriented x3 Psych Appearance: grossly normal Affect: normal affect Office Procedures Post Void Residual Post Residual Void Post Void Residual (PVR): [id number] Void Residual by ultrasound Assessment & Plan Assessment & Plan (1) BPH (benign prostatic hyperplasia): Code(s): N40.0 - Benign prostatic hyperplasia without lower urinary tract symptoms (2) Nicotine dependence: Code(s): F17.200 - Nicotine dependence, unspecified, uncomplicated (3) Incomplete bladder emptying: Code(s): R33.9 - Retention of urine, unspecified (4) BPH loc w urin obs/LUTS: Code(s): N40.1 - Benign prostatic hyperplasia with lower urinary tract symptoms Plan Increase tamsulosin to 0.8 mg daily Renal and bladder ultrasound Follow-up office cystoscopy Orders: Orders AMB Post Void Residual by ultrasound Today N39.8 - Other specified disorders of urinary system US retroperitoneal comp Today N40.1 - Benign prostatic hyperplasia with lower urinary tract symptoms, R33.9 - Retention of urine, unspecified Medications: New tamsulosin 0.8 mg (2 x 0.4 mg) PO BEDTIME 180 caps 0RF Patient Instructions: The patient had an opportunity to ask questions regarding treatment plan. All questions were answered. Laboratory studies and physical exam results were discussed and reviewed in detail. No major barriers to understanding were identified. The patient expressed understanding and agreement with the above treatment plan. The patient is aware they should contact our office by phone for worsening of their current condition or the appearance of new symptoms. Compliance is encouraged with any medications and followup testing that is ordered. It is a privilege to be allowed the opportunity to participate in the urologic care of your patient. If you have any questions or concerns regarding treatment for the above conditions please do not hesitate to contact me. The office telephone contact is [phone]. This note is constructed in part using voice recognition software. While every effort has been made to ensure accuracy body work auto trimmer errors may have been included. Yours sincerely, Zoraida Gómez MD Quality Reporting (2019) Benign Prostatic Hyperplasia ([facility] 771) AUA symptom score: 16 Coding Level of Care Code New Pt Level 4 (76992) Diagnoses BPH (benign prostatic hyperplasia) N40.0 Nicotine dependence F17.200 Incomplete bladder emptying R33.9 BPH loc w urin obs/LUTS N40.1 CPT Codes Post Residual Void - PVR CPT Code: 39787-Wcou Void Residual by ultrasound ([id number])
== END 2023-09-07 16:10 | disposition home or self-care (01) ==
PROVIDERS: PCP Nurse Practitioner Family; Visit Provider Urology
DX: N40.0 Benign prostatic hyperplasia without lower urinary tract symptoms (principal); F17.200 Nicotine dependence, unspecified, uncomplicated; R33.9 Retention of urine, unspecified; N40.1 Benign prostatic hyperplasia with lower urinary tract symptoms
CPT/HCPCS: 99204

== ENCOUNTER → 2023-09-07 14:50 | Outpatient (BNVA) | payer MEDICARE, SELFPAY | PROVIDERS: PCP Nurse Practitioner Family; Visit Provider Urology | DX: N40.1 Benign prostatic hyperplasia with lower urinary tract symptoms (principal); R33.8 Other retention of urine; R39.12 Poor urinary stream; N39.8 Other specified disorders of urinary system; F17.200 Nicotine dependence, unspecified, uncomplicated | CPT/HCPCS: 51798; 99202 ==

== ENCOUNTER 2023-10-03 12:20 | Outpatient (AMB) | payer MEDICARE, SELFPAY ==
--- NOTE | 2023-10-03 12:21 | MHC.PC.OV ---
Vital Signs 10/03/23 12:25 Height 5 ft 8 in Weight 222 lb 8 oz BMI 33.8 BP 124/70 Blood Pressure Location Lt brachial Position Sitting Respiration 20 Pulse 86 Pulse Source Pulse Oximeter Pulse Oximetry (%) 99 Oxygen Delivery Method Room Air Intake Visit Reasons: 3 mos HLD Intake Note: Patient is here for follow up on his cholesterol. He also states he would like to go over CT scan from [facility]. Allergies No Known Allergies Allergy (Verified 10/03/23 12:36) Medication List - Last Reconciled 10/03/23 by Micah Auguste CNP albuterol sulfate 90 mcg/actuation 2 puffs inhalation Q6H PRN apixaban (Eliquis) 5 mg PO BID atorvastatin 80 mg PO DAILY hydroxyurea 500 mg PO DAILY tamsulosin 0.8 mg (2 x 0.4 mg) PO BEDTIME umeclidinium-vilanterol 62.5-25 mcg/actuation (Anoro Ellipta) 1 inh inhalation DAILY Tobacco use date assessed: 10/03/23 Dental Screening Dental Screen Date: 07/11/23 HPI HPI Comments History of Present Illness Details 73-year-old male presents for hyperlipidemia follow-up He forgot to get his lipid panel blood work done He admits to taking his medications as prescribed without adverse reactions He offers no complaints and denies acute symptoms at this time [facility] Medical History Stroke COPD (chronic obstructive pulmonary disease) Surgical History H/O right knee surgery Family History Mother Hodgkin disease Father Clotting disorder Social History Housing: House Patient Tobacco Use Status: Current everyday Tobacco user Cigarettes Per Day: 8 Years Smoked: 60 e-Cigarette/Vaping Use: Never Used service: No Current occupational status: retired Cognitive needs: No Hearing needs: No Vision needs: Yes Questionnaire Thrive Questionnaire Date Thrive assessed: 02/15/23 CINDY-7 AMB Questionnaire CINDY-7 Date CINDY - 7 assessed: 02/15/23 Source: Developed by Drs. Leon Brandon, Maria G Funes, Sotero Ryan and colleagues, with an educational maryana from [employer]. Review of Systems Const Details: Const Denies chills, Denies fatigue, Denies fever(s), Denies headache(s) and Denies weakness ENT Denies dizziness and Denies headache(s) Card Denies chest pain, Denies lightheadedness, Denies dyspnea and Denies other (Palpitations) Resp Denies cough, Denies dyspnea, Denies wheezing and Denies other ( shortness of breath) GI Denies abdominal pain, Denies melena, Denies hematochezia, Denies change in bowel habits, Denies dyspepsia and Denies nausea Denies hematuria and Denies dysuria Musc Denies abnormal gait, Denies myalgias, Denies arthralgias, Denies numbness and Denies tingling Skin/Breast Denies rash, Denies unusual bruising and Denies wounds Neuro Denies abnormal gait, Denies dizziness, Denies headache(s), Denies memory loss, Denies numbness, Denies Sensory deficit (Neuro), Denies tingling and Denies weakness Psych Denies anxiety, Denies depression, Denies memory loss Endo Denies cold intolerance, Denies fatigue, Denies heat intolerance, Denies polydipsia and Denies polyuria Aller/Immun Denies wheezing Physical exam (Primary Care) Vital Signs: Last Vital Signs Pulse 86 10/03/23 12:25 Resp 20 10/03/23 12:25 BP 124/70 10/03/23 12:25 Pulse Ox 99 10/03/23 12:25 Oxygen Delivery Method Room Air 10/03/23 12:25 BMI result Body Mass Index 33.8 Tobacco/Smoking Status: Tobacco use Status Tobacco use date assessed 10/03/23 10/03/23 12:27 Patient Tobacco Use Status Current everyday Tobacco 10/03/23 12:24 e-Cigarette/Vaping Use Never Used 10/03/23 12:24 Thrive Assessment: Date of Thrive Assessment Date Thrive assessed 02/15/23 10/03/23 12:24 Const Other: General: no acute distress and well developed Nutritional Appearance: well nourished Orientation/consciousness: patient oriented x3 HENMT Head: Yes normocephalic and Yes atraumatic Eyes General: appearance normal, both eyes and all related structures Pupils: Equal, round and reactive pupils present EOM: EOMs intact bilaterally Resp Effort & Inspection: normal respiratory effort Auscultation: clear to auscultation bilaterally Cardio Rate: regular rate Rhythm: regular rhythm Heart sounds: S1 normal heart sound present, S2 normal heart sound present, no gallops, no murmurs and no rubs GI Palpation (GI): No Abdominal aortic bruit present, Soft to palpation, nontender, No hepatosplenomegaly present and No Rebound tenderness present Auscultation: normal bowel sounds General: Yes no CVA tenderness Back/Spine/Pelvis Back: no CVA tenderness Cervical Spine: cervical ROM normal and No Cervical spine tenderness Thoracic/Lumbar Spine: thoraco-lumbar ROM normal, No pain with thoraco-lumbar ROM, No thoracic spinal tenderness and No lumbar spinal tenderness Extrem General: Yes normal to inspection, No edema and No calf tenderness Skin General: warm and dry. Normal skin color. Normal skin turgor Neuro General: patient oriented x3, gait normal and no focal neuro deficit Cranial nerves: Yes Equal, round and reactive pupils present Cognition (Neuro): normal cognition Gait exam (Neuro): Normal gait present Sensory Exam: No Sensory deficit (Neuro) Psych Appearance: grossly normal Affect: normal affect Attitude: cooperative Thought process: Normal thought process present Assessment and Plan Assessment & Plan (1) Hyperlipidemia: Code(s): E78.5 - Hyperlipidemia, unspecified Plan: He forgot to get lipid panel blood work done Advised to continue current treatment regimen Encouraged to limit foods high in saturated fat and avoid foods high in trans fat Routine exercise encouraged Follow-up in 2 months for hyperlipidemia and prediabetes Return sooner with symptoms or concerns Verbalized understanding and agreed with treatment plan Orders: Orders Hemoglobin A1c Today R73.03 - Prediabetes Coding Level of Care Code Est Pt Level 3 (50461) Diagnoses Hyperlipidemia E78.5
[2023-10-03 12:25] VITALS: BP 124/70; PULSE 86; RESP 20; O2SAT 99; BMI 33.8
== END 2023-10-03 12:56 | disposition home or self-care (01) ==
LOC: HO.HMGFM 12:20
PROVIDERS: PCP Nurse Practitioner Family; Visit Provider Nurse Practitioner Family
DX: E78.5 Hyperlipidemia, unspecified (principal)
CPT/HCPCS: 99213

== ENCOUNTER 2023-10-13 13:18 | Outpatient (REF) | payer MEDICARE, SELFPAY ==
--- NOTE | ~2023-10-13 | US_ITS ---
EXAMINATION: US RETROPERITONEAL COMPLETE (RENAL) CLINICAL INFORMATION: Benign prostatic hyperplasia with lower urinary tract symptoms. COMPARISON: None available. TECHNIQUE: Real-time imaging of the kidneys and bladder. FINDINGS: RIGHT KIDNEY: 10.0 x 4.6 x 4.4 cm (SAG x AP x TRV). The kidney is normal in size, contour, and echogenicity. Renal cortical thickness is normal. No calculi or focal parenchymal lesions. No hydronephrosis. LEFT KIDNEY: 9.8 x 6.1 x 4.0 cm (SAG x AP x TRV). The kidney is normal in size, contour, and echogenicity. Renal cortical thickness is normal. No calculi or focal parenchymal lesions. No hydronephrosis. BLADDER: Trabeculated bladder wall. Bilateral ureteral jets are demonstrated. Prevoid bladder volume is 279 mL. Postvoid bladder volume is 142 mL. ADDITIONAL FINDINGS: The prostate measures 30 mL. US/US retroperitoneal comp IMPRESSION: Enlarged prostate measuring 30 mL. No hydronephrosis. Trabeculated bladder wall with post void residual 142 mL.
== END 2023-10-13 13:19 | disposition home or self-care (01) ==
LOC: HO.US 13:18
PROVIDERS: PCP Nurse Practitioner Family; Visit Provider Urology
DX: N40.1 Benign prostatic hyperplasia with lower urinary tract symptoms (principal); R33.9 Retention of urine, unspecified
CPT/HCPCS: 76770

== ENCOUNTER 2023-10-21 14:18 | Outpatient (AMB) | payer MEDICARE, SELFPAY ==
--- NOTE | 2023-10-21 15:03 | MHC.OFFVIS ---
Intake Visit Reasons: cysto/ US Allergies No Known Allergies Allergy (Verified 10/03/23 12:36) Medication List - Last Reconciled 10/21/23 by Zoraida Gómez MD albuterol sulfate 90 mcg/actuation 2 puffs inhalation Q6H PRN apixaban (Eliquis) 5 mg PO BID atorvastatin 80 mg PO DAILY hydroxyurea 500 mg PO DAILY tamsulosin 0.8 mg (2 x 0.4 mg) PO BEDTIME umeclidinium-vilanterol 62.5-25 mcg/actuation (Anoro Ellipta) 1 inh inhalation DAILY HPI Comments Details: Louei is here for office cystoscopy. I have reviewed the renal ultrasound 10/13/2023 kidneys within normal limits no hydronephrosis estimated prostate volume 30 mL, bladder wall trabeculations. The patient states that he has noticed in improvement in urinary stream in symptoms with increased dose of the tamsulosin twice a day. Cystoscopy findings mild trabeculations, prostatic urethra nonobstructive. Plan continue tamsulosin twice a day follow-up in 6 months. Monitor postvoid residual. Review of chart: 09/07/23--Louie is a 73-year-old male who is here for evaluation for lower urinary tract symptoms. He complains of a weak stream. He has been prescribed tamsulosin 0.4 mg at bedtime. Comorbidity nicotine dependence. He denies gross hematuria or dysuria. AUA symptom score 16. The patient was unable to give a voided urine sample in the office. Bladder scan PVR is elevated 287 mL. Prostate exam-smooth mildly enlarged. No suspicious nodules. PSA testing reviewed 03/11/2023--0.87 ng/mL Plan: I have discussed evaluation with renal and bladder ultrasound, follow-up office cystoscopy. I have instructed him to increase the tamsulosin to 2 tablets (0.8 mL) daily. 10/21/2023--plan continue tamsulosin 0.4 mg b.i.d., monitor postvoid residual PFSH Medical History Stroke COPD (chronic obstructive pulmonary disease) Surgical History H/O right knee surgery Family History Mother Hodgkin disease Father Clotting disorder Social History Housing: House Patient Tobacco Use Status: Current everyday Tobacco user Cigarettes Per Day: 8 Years Smoked: 60 e-Cigarette/Vaping Use: Never Used service: No Current occupational status: retired Cognitive needs: No Hearing needs: No Vision needs: Yes Review of Systems Const All systems reviewed & are unremarkable except as noted in HPI and below Reports no additional complaints Eyes Reports no additional complaints ENT Reports no additional complaints Card Reports no additional complaints Resp Reports no additional complaints GI Reports no additional complaints Reports as per HPI Musc Reports no additional complaints Skin/Breast Reports system reviewed and no additional complaints, except as documented Neuro Reports no additional complaints Psych Reports no additional complaints Endo Reports no additional complaints Ilir/Lymph Reports no additional complaints Aller/Immun Reports no additional complaints Office Procedures Cystoscopy Consent Discussed risk and benefit or proposed procedure with the patient. Information consent for procedure given to the patient. Discussed technical aspects, risks, benefits and alternatives in full. Addressed all of the patient's questions and concerns regarding the procedure. The patient demonstrated knowledge and understanding. They wish to proceed with this procedure. Preparation The patient was prepped in the usual manner. A legal writing professor was present and in the room. Genitalia was prepped with betadine solution in a sterile manner. Lidocaine Jelly 2% was placed into the urethra and 16Fr flexible Olympus cystoscope was inserted into the meatus after adequate lubrication. Procedure Time out per protocol performed. Bladder Inspection Bladder Inspection: The bladder was inspected in its entirety with utilization retroflexion displaying: Tumor(s): None visualized Trabeculation: Mild to moderate Mucosal Erthema: NA Orifices: normal shape and position Urethra: normal Cystoscopy findings: prostatic urethra non obstructive, bulbous urethra WNL, no suspicious bladder lesions visualized [id number] DISPOSABLE SCOPE URO-G FLEXIBLE SCOPE Procedure code (CPT) selection complete Office Meds lidocaine HCl 2 % mucosal jelly in applicator Performing Provider: Zoraida Gómez MD Performing Location[place] [facility] [place] [facility] Administered by: Jerald Monique LPN on 10/21/23 15:10 Dose Route Admin Location Dispensed Lot Number Expiration Date NDC Marketing Database Coordinator 10 mL intra-urethral 20 mL naproxen 500 mg tablet Performing Provider: Zoraida Gómez MD Performing Location: [facility] [place] [facility] Administered by: Jerald Monique LPN on 10/21/23 15:10 Dose Route Admin Location Dispensed Lot Number Expiration Date NDC Marketing Database Coordinator 500 mg PO 1 tab ciprofloxacin HCl 500 mg tablet Performing Provider: Zoraida Gómez MD Performing Location: [facility] [place] [facility] Administered by: Jerald Monique LPN on 10/21/23 15:10 Dose Route Admin Location Dispensed Lot Number Expiration Date NDC Marketing Database Coordinator 500 mg PO 1 tab Results Reviewed Results Reviewed: Date of Service: 10/13/23 US RETROPERITONEAL COMPLETE (RENAL) CLINICAL INFORMATION: Benign prostatic hyperplasia with lower urinary tract symptoms. COMPARISON: None available. TECHNIQUE: Real-time imaging of the kidneys and bladder. FINDINGS: RIGHT KIDNEY: 10.0 x 4.6 x 4.4 cm (SAG x AP x TRV). The kidney is normal in size, contour, and echogenicity. Renal cortical thickness is normal. No calculi or focal parenchymal lesions. No hydronephrosis. LEFT KIDNEY: 9.8 x 6.1 x 4.0 cm (SAG x AP x TRV). The kidney is normal in size, contour, and echogenicity. Renal cortical thickness is normal. No calculi or focal parenchymal lesions. No hydronephrosis. BLADDER: Trabeculated bladder wall. Bilateral ureteral jets are demonstrated. Prevoid bladder volume is 279 mL. Postvoid bladder volume is 142 mL. ADDITIONAL FINDINGS: The prostate measures 30 mL. IMPRESSION: Enlarged prostate measuring 30 mL. No hydronephrosis. Trabeculated bladder wall with post void residual 142 mL. Assessment & Plan Assessment & Plan (1) BPH (benign prostatic hyperplasia): Code(s): N40.0 - Benign prostatic hyperplasia without lower urinary tract symptoms Category: Medical (2) Nicotine dependence: Code(s): F17.200 - Nicotine dependence, unspecified, uncomplicated Category: Medical (3) Incomplete bladder emptying: Code(s): R33.9 - Retention of urine, unspecified Category: Medical (4) BPH loc w urin obs/LUTS: Code(s): N40.1 - Benign prostatic hyperplasia with lower urinary tract symptoms Category: Medical Plan Tamsulosin 0.4 mg b.i.d., follow-up in months Orders: Orders AMB Cystoscopy Today N40.1 - Benign prostatic hyperplasia with lower urinary tract symptoms, R33.9 - Retention of urine, unspecified Patient Instructions: The patient had an opportunity to ask questions regarding treatment plan. The patient expressed understanding and agreement with the above treatment plan. The patient is aware they should contact our office by phone for worsening of their current condition or the appearance of new symptoms. Compliance is encouraged with any medications and followup testing that is ordered. It is a privilege to be allowed the opportunity to participate in the urologic care of your patient. If you have any questions or concerns regarding treatment for the above conditions please do not hesitate to contact me. The office telephone contact is [phone]. This note is constructed in part using voice recognition software. While every effort has been made to ensure accuracy surgical services tech errors may have been included. Yours sincerely, Zoraida Gómez MD Coding Level of Care Code Procedure Only Diagnoses BPH (benign prostatic hyperplasia) N40.0 Nicotine dependence F17.200 Incomplete bladder emptying R33.9 BPH loc w urin obs/LUTS N40.1 CPT Codes Cystoscopy - CPT: 95847-[id number] ([id number])
== END 2023-10-21 15:41 | disposition home or self-care (01) ==
PROVIDERS: PCP Nurse Practitioner Family; Visit Provider Urology
DX: N40.1 Benign prostatic hyperplasia with lower urinary tract symptoms (principal); R33.9 Retention of urine, unspecified; F17.200 Nicotine dependence, unspecified, uncomplicated
CPT/HCPCS: 52000

== ENCOUNTER → 2023-10-21 14:18 | Outpatient (BNVA) | payer MEDICARE, SELFPAY | PROVIDERS: PCP Nurse Practitioner Family; Visit Provider Urology | DX: N40.1 Benign prostatic hyperplasia with lower urinary tract symptoms (principal); N13.8 Other obstructive and reflux uropathy; R33.8 Other retention of urine; F17.210 Nicotine dependence, cigarettes, uncomplicated | CPT/HCPCS: 52000 ==

== ENCOUNTER 2023-11-10 12:56 | Outpatient (REF) | payer MEDICARE, SELFPAY ==
[2023-11-10 15:01] LABS: Estimated Average Glucose 126 mg/dL
[2023-11-10 15:25] LABS: Cholesterol 97 mg/dL (<200); HDL Cholesterol 28 mg/dL (>40); LDL Cholesterol Calculated 38 mg/dL (<100); Triglycerides 158 mg/dL (<150)
== END 2023-11-10 12:57 | disposition home or self-care (01) ==
LOC: HO.WFDLDS 12:56
PROVIDERS: Visit Provider Nurse Practitioner Family
DX: R73.03 Prediabetes (principal); E78.5 Hyperlipidemia, unspecified
CPT/HCPCS: 36415; 80061; 83036

== ENCOUNTER 2023-11-15 11:47 | Outpatient (AMB) | payer MEDICARE, SELFPAY ==
[2023-11-15 11:49] VITALS: BP 124/60; PULSE 73; RESP 14; TEMP 36.6; O2SAT 99; BMI 33.8
--- NOTE | 2023-11-15 11:49 | A.OFFPC_ITS ---
Vital Signs 11/15/23 11:49 Height 5 ft 8 in Weight 222 lb 8 oz BMI 33.8 BP 124/60 Blood Pressure Location Rt brachial Position Sitting Respiration 14 Pulse 73 Pulse Source Pulse Oximeter Temp 97.8 F Temp Source Temporal Artery Scan Pulse Oximetry (%) 99 Oxygen Delivery Method Room Air Intake Visit Reasons: 2 mos HLD, prediabetes Billet Recorder Required: No Accompanied by: Self / Same As Patient Allergies No Known Allergies Allergy (Verified 11/15/23 11:58) Tobacco use date assessed: 10/03/23 Fall risk assessment: No Falls in past year Last assessed Fall Risk: 11/15/23 Dental Screening Dental Screen Date: 07/11/23 HPI HPI Comments History of Present Illness Details 73-year-old male presents for hyperlipid emia and prediabetes follow-up He admits to taking his medications as prescribed without adverse reactions He offers no complaints and denies acute symptoms at this time [facility] Medical History Stroke COPD (chronic obstructive pulmonary disease) Surgical History H/O right knee surgery Family History Mother Hodgkin disease Father Clotting disorder Social History Housing: House Patient Tobacco Use Status: Current everyday Tobacco user Cigarettes Per Day: 8 Years Smoked: 60 e-Cigarette/Vaping Use: Never Used service: No Current occupational status: retired Cognitive needs: No Hearing needs: No Vision needs: Yes Questionnaire Thrive Questionnaire Date Thrive assessed: 02/15/23 CINDY-7 AMB Questionnaire CINDY-7 Date CINDY - 7 assessed: 02/15/23 Source: Developed by Drs. Leon Brandon, Maria G Funes, Sotero Ryan and colleagues, with an educational maryana from [employer]. Review of Systems Const Details: Const Denies chills, Denies fatigue, Denies fever(s), Denies headache(s) and Denies weakness ENT Denies dizziness and Denies headache(s) Card Denies chest pain, Denies lightheadedness, Denies dyspnea and Denies other (Palpitations) Resp Denies cough, Denies dyspnea, Denies wheezing and Denies other ( shortness of breath) GI Denies abdominal pain, Denies melena, Denies hematochezia, Denies change in bowel habits, Denies dyspepsia and Denies nausea Denies hematuria and Denies dysuria Musc Denies abnormal gait, Denies myalgias, Denies arthralgias, Denies numbness and Denies tingling Skin/Breast Denies rash, Denies unusual bruising and Denies wounds Neuro Denies abnormal gait, Denies dizziness, Denies headache(s), Denies memory loss, Denies numbness, Denies Sensory deficit (Neuro), Denies tingling and Denies weakness Psych Denies anxiety, Denies depression, Denies memory loss Endo Denies cold intolerance, Denies fatigue, Denies heat intolerance, Denies polydipsia and Denies polyuria Aller/Immun Denies wheezing Physical exam (Primary Care) Vital Signs: Last Vital Signs Temp 97.8 F 11/15/23 11:49 Pulse 73 11/15/23 11:49 Resp 14 11/15/23 11:49 BP 124/60 11/15/23 11:49 Pulse Ox 99 11/15/23 11:49 Oxygen Delivery Method Room Air 11/15/23 11:49 BMI result Body Mass Index 33.8 Tobacco/Smoking Status: Tobacco use Status Tobacco use date assessed 10/03/23 11/15/23 11:59 Patient Tobacco Use Status Current everyday Tobacco 11/15/23 11:59 e-Cigarette/Vaping Use Never Used 11/15/23 11:59 Thrive Assessment: Date of Thrive Assessment Date Thrive assessed 02/15/23 11/15/23 11:59 Const Other: General: no acute distress and well developed Nutritional Appearance: well nourished Orientation/consciousness: patient oriented x3 HENMT Head: Yes normocephalic and Yes atraumatic Eyes General: appearance normal, both eyes and all related structures Pupils: Equal, round and reactive pupils present EOM: EOMs intact bilaterally Resp Effort & Inspection: normal respiratory effort Auscultation: clear to auscultation bilaterally Cardio Rate: regular rate Rhythm: regular rhythm Heart sounds: S1 normal heart sound present, S2 normal heart sound present, no gallops, no murmurs and no rubs GI Palpation (GI): No Abdominal aortic bruit present, Soft to palpation, nontender, No hepatosplenomegaly present and No Rebound tenderness present Auscultation: normal bowel sounds General: Yes no CVA tenderness Back/Spine/Pelvis Back: no CVA tenderness Cervical Spine: cervical ROM normal and No Cervical spine tenderness Thoracic/Lumbar Spine: thoraco-lumbar ROM normal, No pain with thoraco-lumbar ROM, No thoracic spinal tenderness and No lumbar spinal tenderness Extrem General: Yes normal to inspection, No edema and No calf tenderness Skin General: warm and dry. Normal skin color. Normal skin turgor Neuro General: patient oriented x3, gait normal and no focal neuro deficit Cranial nerves: Yes Equal, round and reactive pupils present Cognition (Neuro): normal cognition Gait exam (Neuro): Normal gait present Sensory Exam: No Sensory deficit (Neuro) Psych Appearance: grossly normal Affect: normal affect Attitude: cooperative Thought process: Normal thought process present Assessment and Plan Assessment & Plan (1) Hyperlipidemia: Code(s): E78.5 - Hyperlipidemia, unspecified Plan: Recent lab results reviewed with the patient Triglycerides level is slightly elevated, 158. Previous triglycerides level was normal. HDL level is still low, 28. Total cholesterol and LDL levels are normal, 97 and 38 respectively Continue current treatment regimen Advised to limit foods high in saturated fat and avoid foods high in trans fat Routine exercise encouraged Will recheck lipid panel. Advised to fast for 10-12 hours, may drink water only, and get blood work done a few days before his next visit Follow-up in 3 months for hyperlipidemia and prediabetes or return sooner with symptoms or concerns Verbalized understanding and agreed with treatment plan (2) Prediabetes: Code(s): R73.03 - Prediabetes Plan: Recent A1c level is 6.0%. Previous A1c level was 6.0% Healthy diet, including limiting carbs such as rice, pasta, potatoes, and bread, and routine exercise encouraged Will recheck A1c in 3 months Verbalized understanding and agreed with treatment plan Orders: Orders Lipid Panel 3 Months E78.5 - Hyperlipidemia, unspecified Hemoglobin A1c 3 Months R73.03 - Prediabetes Coding Level of Care Code Est Pt Level 4 (36837) Complex EM visit Add On G2211 Diagnoses Hyperlipidemia E78.5 Prediabetes R73.03
== END 2023-11-15 12:22 | disposition home or self-care (01) ==
PROVIDERS: PCP Nurse Practitioner Family; Visit Provider Nurse Practitioner Family
DX: E78.5 Hyperlipidemia, unspecified (principal); R73.03 Prediabetes
CPT/HCPCS: 99214; G2211

== ENCOUNTER 2023-11-28 14:14 | Outpatient (REF) | payer MEDICARE, SELFPAY | END 2023-11-28 14:15 | disposition home or self-care (01) | LOC: HO.BBR 14:14 | PROVIDERS: PCP Nurse Practitioner Family; Visit Provider Internal Medicine | DX: D75.1 Secondary polycythemia (principal) | CPT/HCPCS: 85014; 85018; 99195 ==

== ENCOUNTER 2024-02-09 13:46 | Outpatient (REF) | payer MEDICARE, SELFPAY | END 2024-02-09 13:47 | disposition home or self-care (01) | LOC: HO.WFDLDS 13:46 | PROVIDERS: Visit Provider Nurse Practitioner Family | DX: Z13.89 Encounter for screening for other disorder (principal) ==

== ENCOUNTER 2024-02-10 13:06 | Outpatient (REF) | payer MEDICARE, SELFPAY ==
[2024-02-10 15:21] LABS: Estimated Average Glucose 120 mg/dL; Hemoglobin A1c % 5.8 % (<6.0)
== END 2024-02-10 13:07 | disposition home or self-care (01) ==
LOC: HO.WFDLDS 13:06
PROVIDERS: Visit Provider Nurse Practitioner Family
DX: R73.03 Prediabetes (principal)
CPT/HCPCS: 36415; 80061; 83036

== ENCOUNTER 2024-02-17 11:29 | Outpatient (AMB) | payer MEDICARE, SELFPAY ==
--- NOTE | 2024-02-17 11:38 | A.OFFPC_ITS ---
Vital Signs 02/17/24 11:48 Height 5 ft 8 in Weight 217 lb 2 oz BMI 33.0 BP 120/64 Blood Pressure Location Rt brachial Position Sitting Respiration 16 Pulse 94 Pulse Source Pulse Oximeter Temp 97.0 F Temp Source Oral Pulse Oximetry (%) 94 Oxygen Delivery Method Room Air Intake Visit Reasons: 3 mos HLD, prediabetes Intake Note: patient here for 3 month follow up on pre-diabetes and HDL Technical Training Instructor Required: No Allergies No Known Allergies Allergy (Verified 02/17/24 11:47) Tobacco use date assessed: 02/17/24 Fall risk assessment: No Falls in past year Last assessed Fall Risk: 02/17/24 Dental Screening Dental Screen Date: 02/17/24 Did you have a dental visit in the last 12 months?: No Did you have a dental problem in the last 6 months where you did not have access to dental care?: No Was dental information given to patient?: Patient declined HPI HPI Comments History of Present Illness Details 73-year-old male presents for hyperlipid emia and prediabetes follow-up He admits to taking his medications as prescribed without adverse reactions He offers no complaints and denies acute symptoms at this time He notes that he had lipid panel blood work done on 02/10/2024; however, it was not resulted. He was contacted by the lab to redo the blood work which he had done today [facility] Medical History Stroke COPD (chronic obstructive pulmonary disease) Surgical History H/O right knee surgery Family History Mother Hodgkin disease Father Clotting disorder Social History Housing: House Patient Tobacco Use Status: Current everyday Tobacco user Cigarettes Per Day: 8 Years Smoked: 60 e-Cigarette/Vaping Use: Never Used service: No Current occupational status: retired Cognitive needs: No Hearing needs: No Vision needs: Yes Questionnaire Thrive Questionnaire Date Thrive assessed: 02/15/23 CINDY-7 AMB Questionnaire CINDY-7 Date CINDY - 7 assessed: 02/15/23 Source: Developed by James Allenet B[employer]W. [employer], Sotero Ryan and colleagues, with an educational maryana from [employer]. Review of Systems Const Details: Const Denies chills, Denies fatigue, Denies fever(s), Denies headache(s) and Denies weakness ENT Denies dizziness and Denies headache(s) Card Denies chest pain, Denies lightheadedness, Denies dyspnea and Denies other (Palpitations) Resp Denies cough, Denies dyspnea, Denies wheezing and Denies other ( shortness of breath) GI Denies abdominal pain, Denies melena, Denies hematochezia, Denies change in bowel habits, Denies dyspepsia and Denies nausea Denies hematuria and Denies dysuria Musc Denies abnormal gait, Denies myalgias, Denies arthralgias, Denies numbness and Denies tingling Skin/Breast Denies rash, Denies unusual bruising and Denies wounds Neuro Denies abnormal gait, Denies dizziness, Denies headache(s), Denies memory loss, Denies numbness, Denies Sensory deficit (Neuro), Denies tingling and Denies weakness Psych Denies anxiety, Denies depression, Denies memory loss Endo Denies cold intolerance, Denies fatigue, Denies heat intolerance, Denies polydipsia and Denies polyuria Aller/Immun Denies wheezing Physical exam (Primary Care) Vital Signs: Last Vital Signs Temp 97.0 F 02/17/24 11:48 Pulse 94 02/17/24 11:48 Resp 16 02/17/24 11:48 BP 120/64 02/17/24 11:48 Pulse Ox 94 02/17/24 11:48 Oxygen Delivery Method Room Air 02/17/24 11:48 BMI result Body Mass Index 33.0 Tobacco/Smoking Status: Tobacco use Status Tobacco use date assessed 02/17/24 02/17/24 11:48 Patient Tobacco Use Status Current everyday Tobacco 02/17/24 11:41 e-Cigarette/Vaping Use Never Used 02/17/24 11:41 Thrive Assessment: Date of Thrive Assessment Date Thrive assessed 02/15/23 02/17/24 11:41 Const Other: General: no acute distress and well developed Nutritional Appearance: well nourished Orientation/consciousness: patient oriented x3 HENMT Head: Yes normocephalic and Yes atraumatic Eyes General: appearance normal, both eyes and all related structures Pupils: Equal, round and reactive pupils present EOM: EOMs intact bilaterally Resp Effort & Inspection: normal respiratory effort Auscultation: clear to auscultation bilaterally Cardio Rate: regular rate Rhythm: regular rhythm Heart sounds: S1 normal heart sound present, S2 normal heart sound present, no gallops, no murmurs and no rubs GI Palpation (GI): No Abdominal aortic bruit present, Soft to palpation, nontender, No hepatosplenomegaly present and No Rebound tenderness present Auscultation: normal bowel sounds General: Yes no CVA tenderness Back/Spine/Pelvis Back: no CVA tenderness Cervical Spine: cervical ROM normal and No Cervical spine tenderness Thoracic/Lumbar Spine: thoraco-lumbar ROM normal, No pain with thoraco-lumbar ROM, No thoracic spinal tenderness and No lumbar spinal tenderness Extrem General: Yes normal to inspection, No edema and No calf tenderness Skin General: warm and dry. Normal skin color. Normal skin turgor Neuro General: patient oriented x3, gait normal and no focal neuro deficit Cranial nerves: Yes Equal, round and reactive pupils present Cognition (Neuro): normal cognition Gait exam (Neuro): Normal gait present Sensory Exam: No Sensory deficit (Neuro) Psych Appearance: grossly normal Affect: normal affect Attitude: cooperative Thought process: Normal thought process present Assessment and Plan Assessment & Plan (1) Hyperlipidemia: Code(s): E78.5 - Hyperlipidemia, unspecified Plan: He had lipid panel blood work done today. Will review results and make changes as needed Continue current treatment regimen Encouraged to fast for 10-12 hours, may drink water only, and get blood work do ne before his next visit Follow-up in 2 months for an extended physical exam or return sooner with symptoms or concerns Verbalized understanding and agreed with the plan (2) Prediabetes: Code(s): R73.03 - Prediabetes Plan: Recent A1c level a few day ago is 5.8% Healthy diet and routine exercise encouraged Will monitor A1c level periodically Verbalized understanding and agreed with the plan Orders: Orders Complete Blood Count Auto Diff Today Z00.00 - Encounter for general adult medical examination without abnormal findings TSH reflex Free T4 Today Z00.00 - Encounter for general adult medical examination without abnormal findings Microalbumin, Random (w Creat) Today Z00.00 - Encounter for general adult medical examination without abnormal findings Comprehensive [place]. Panel Fast Today Z00.00 - Encounter for general adult medical examination without abnormal findings UA CC w/rflx Micro + Cult Today Z00.00 - Encounter for general adult medical examination without abnormal findings Coding Level of Care Code Est Pt Level 3 (69962) Diagnoses Hyperlipidemia E78.5 Prediabetes R73.03
[2024-02-17 11:48] VITALS: BP 120/64; PULSE 94; RESP 16; TEMP 36.1; O2SAT 94; BMI 33.0
== END 2024-02-17 12:22 | disposition home or self-care (01) ==
PROVIDERS: PCP Nurse Practitioner Family; Visit Provider Nurse Practitioner Family
DX: E78.5 Hyperlipidemia, unspecified (principal); R73.03 Prediabetes
CPT/HCPCS: 99213

== ENCOUNTER 2024-02-17 11:40 | Outpatient (REF) | payer MEDICARE, SELFPAY ==
[2024-02-17 15:02] LABS: Cholesterol 81 mg/dL (<200); HDL Cholesterol 26 mg/dL (>40); LDL Cholesterol Calculated 27 mg/dL (<100); Triglycerides 142 mg/dL (<150)
== END 2024-02-17 11:41 | disposition home or self-care (01) ==
LOC: HO.WFDLDS 11:40
PROVIDERS: Visit Provider Nurse Practitioner Family
DX: E78.5 Hyperlipidemia, unspecified (principal)
CPT/HCPCS: 36415; 80061

== ENCOUNTER 2024-02-27 13:05 | Outpatient (REF) | payer MEDICARE, SELFPAY | END 2024-02-27 13:06 | disposition home or self-care (01) | LOC: HO.BBR 13:05 | PROVIDERS: PCP Nurse Practitioner Family; Visit Provider Internal Medicine | DX: D75.1 Secondary polycythemia (principal) | CPT/HCPCS: 85014; 85018; 99195 ==

== ENCOUNTER 2024-03-01 09:52 | Outpatient (AMB) | payer MEDICARE, SELFPAY ==
--- NOTE | 2024-03-01 09:53 | A.OFFPC_ITS ---
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: No Allergies No Known Allergies Allergy (Verified 03/01/24 10:13) Medication List - Last Reconciled 03/01/24 by Micah Auguste CNP albuterol sulfate 90 mcg/actuation 2 puffs inhalation Q6H PRN apixaban (Eliquis) 5 mg PO BID atorvastatin 40 mg PO BEDTIME 30 days hydroxyurea 500 mg PO DAILY tamsulosin 0.8 mg (2 x 0.4 mg) PO BEDTIME umeclidinium-vilanterol 62.5-25 mcg/actuation (Anoro Ellipta) 1 inh inhalation DAILY Tobacco use date assessed: 03/01/24 Fall risk assessment: No Falls in past year Last assessed Fall Risk: 03/01/24 Dental Screening Dental Screen Date: 02/17/24 HPI HPI Comments History of Present Illness Details 73-year-old male presents with complaint s of painful, non-itchy rash to his to his groins and scrotum. He notes that he has had the rash on/off for several years. He notes that his current rash started a week ago and is more severe that previous. He has been using an [id number] cream which his uses but is no longer effective for him. [facility] Medical History Stroke COPD (chronic obstructive pulmonary disease) Surgical History H/O right knee surgery Family History Mother Hodgkin disease Father Clotting disorder Social History Housing: House Patient Tobacco Use Status: Current everyday Tobacco user Cigarettes Per Day: 8 Years Smoked: 60 e-Cigarette/Vaping Use: Never Used service: No Current occupational status: retired Cognitive needs: No Hearing needs: No Vision needs: Yes Questionnaire Thrive Questionnaire Date Thrive assessed: 02/15/23 CINDY-7 AMB Questionnaire CINDY-7 Date CINDY - 7 assessed: 02/15/23 Source: Developed by Drs. Leon Brandon, Maria G Funes, Sotero Ryan and colleagues, with an educational maryana from [employer]. Review of Systems Const Details: Const Denies chills, Denies fatigue, Denies fever(s), Denies headache(s) and Denies weakness ENT Denies dizziness and Denies headache(s) Card Denies chest pain, Denies lightheadedness, Denies dyspnea and Denies other (Palpitations) Resp Denies cough, Denies dyspnea, Denies wheezing and Denies other ( shortness of breath) GI Denies abdominal pain, Denies melena, Denies hematochezia, Denies change in bowel habits, Denies dyspepsia and Denies nausea Denies hematuria and Denies dysuria Musc Denies abnormal gait, Denies myalgias, Denies arthralgias, Denies numbness and Denies tingling Skin/Breast Reports as per HPI Neuro Denies abnormal gait, Denies dizziness, Denies headache(s), Denies memory loss, Denies numbness, Denies Sensory deficit (Neuro), Denies tingling and Denies weakness Psych Denies anxiety, Denies depression, Denies memory loss Endo Denies cold intolerance, Denies fatigue, Denies heat intolerance, Denies polydipsia and Denies polyuria Aller/Immun Denies wheezing Physical exam (Primary Care) Vital Signs: Last Vital Signs Temp 97.9 F 03/01/24 09:58 Pulse 67 03/01/24 09:58 Resp 16 03/01/24 09:58 BP 118/60 03/01/24 09:58 Pulse Ox 95 03/01/24 09:58 Oxygen Delivery Method Room Air 03/01/24 09:58 BMI result Body Mass Index 32.5 Tobacco/Smoking Status: Tobacco use Status Tobacco use date assessed 03/01/24 03/01/24 10:03 Patient Tobacco Use Status Current everyday Tobacco 03/01/24 10:03 e-Cigarette/Vaping Use Never Used 03/01/24 10:03 Thrive Assessment: Date of Thrive Assessment Date Thrive assessed 02/15/23 03/01/24 10:03 Const Other: General: no acute distress and well developed Nutritional Appearance: well nourished Orientation/consciousness: patient oriented x3 [facility] Head: Yes normocephalic and Yes atraumatic Eyes General: appearance normal, both eyes and all related structures Pupils: Equal, round and reactive pupils present EOM: EOMs intact bilaterally Resp Effort & Inspection: normal respiratory effort Auscultation: clear to auscultation bilaterally Cardio Rate: regular rate Rhythm: regular rhythm Heart sounds: S1 normal heart sound present, S2 normal heart sound present, no gallops, no murmurs and no rubs GI Palpation (GI): No Abdominal aortic bruit present, Soft to palpation, nontender, No hepatosplenomegaly present and No Rebound tenderness present Auscultation: normal bowel sounds General: Yes no CVA tenderness Back/Spine/Pelvis Back: no CVA tenderness Cervical Spine: cervical ROM normal and No Cervical spine tenderness Thoracic/Lumbar Spine: thoraco-lumbar ROM normal, No pain with thoraco-lumbar ROM, No thoracic spinal tenderness and No lumbar spinal tenderness Extrem General: Yes normal to inspection, No edema and No calf tenderness Skin General: warm and dry. Normal skin color. Normal skin turgor Lesions: no lesions Rashes: Red, moist patches noted to both groins and entire scrotum; tender to touch; consistent with a fungal rash Trauma: no lacerations or abrasions Wounds: no wounds Nails: normal Neuro General: patient oriented x3, gait normal and no focal neuro deficit Cranial nerves: Yes Equal, round and reactive pupils present Cognition (Neuro): normal cognition Gait exam (Neuro): Normal gait present Sensory Exam: No Sensory deficit (Neuro) Psych Appearance: grossly normal Affect: normal affect Attitude: cooperative Thought process: Normal thought process present Assessment and Plan Assessment & Plan (1) Tinea cruris: Code(s): B35.6 - Tinea cruris Plan: Red, moist patches noted to both groins and entire scrotum; tender to touch; consistent with a fungal rash Fluconazole tablet ordered. Advised to take as prescribed Ketoconazole cream ordered. Advised to start using as prescribed if fluconazole does not improve his rash Instructed on genital hygiene Advised to follow-up in 2-3 weeks if signs and symptoms persist or worsens Verbalized understanding and agreed with the plan Medications: New fluconazole 150 mg PO Q3D 2 tabs 0RF ketoconazole 2% 1 appl topical BID 30 grams 1RF Coding Level of Care Code Est Pt Level 3 (47873) Diagnoses Tinea cruris B35.6
[2024-03-01 09:58] VITALS: BP 118/60; PULSE 67; RESP 16; TEMP 36.6; O2SAT 95; BMI 32.5
== END 2024-03-01 12:36 | disposition home or self-care (01) ==
PROVIDERS: PCP Nurse Practitioner Family; Visit Provider Nurse Practitioner Family
DX: B35.6 Tinea cruris (principal)

== ENCOUNTER → 2024-03-01 09:52 | Outpatient (BNVA) | payer MEDICARE, SELFPAY | PROVIDERS: PCP Nurse Practitioner Family; Visit Provider Nurse Practitioner Family | DX: B35.6 Tinea cruris (principal) | CPT/HCPCS: 99212 ==

== ENCOUNTER 2024-04-17 10:53 | Outpatient (REF) | payer MEDICARE, SELFPAY ==
[2024-04-17 14:19] LABS: Appearance Urine Clear; Color Urine Dark Yellow; Glucose Urine UA Negative (Negative); Leukocyte Esterase Urine Negative (Negative); Nitrite Urine Negative (Negative); PH 5.5 (5.0-9.0); Specific Gravity - Urine 1.025 (1.005-1.025); Urine Blood Negative (Negative); Urine Ketones Negative (Negative); Urine Protein Trace mg/dL (Neg-Trace)
[2024-04-17 14:39] LABS: Basophils Percent Auto 0.4 % (0-2); Eosinophils Percent Auto 0.3 % (0-4); Hematocrit 45.2 % (42.0-52.0); Hemoglobin 14.4 g/dl (14.0-18.0); Imm Gran Abs Auto 0.04 X10*3/uL (0.00-0.03); Imm Gran Pct Auto 0.6 % (0.0-0.4); Lymphocytes Absolute Auto 2.1 X10*3/uL (1.2-4.9); Lymphocytes Percent Auto 30.1 % (20-40); Mean Corpuscular HGB Conc 31.9 g/dl (31.0-36.0); Mean Corpuscular Hemoglobin 36.3 pg (27.0-33.0); Mean Corpuscular Volume 113.9 fL (80.0-98.0); Mean Platelet Volume 11.6 fL (9.4-12.4); Monocytes Absolute Auto 0.5 X10*3/uL (0.1-1.2); Monocytes Percent Auto 6.7 % (2-11); NRBC Pct Auto 0.3 /100WBC (0.0-0.2); Neutrophils Absolute Auto 4.3 x10*3/uL (2.0-8.3); Neutrophils Percent Auto 61.9 % (45-73); Platelet Count 154 X10*3/uL (160-400); Red Blood Count 3.97 X10*6/uL (4.60-5.80); Red Cell Distribution Width 17.8 % (11.0-16.0); White Blood Count 6.9 X10*3/uL (4.8-10.8)
[2024-04-17 15:06] LABS: MANUAL DIFF FLAG SCAN; SLIDE REVIEW VERIFIED
[2024-04-17 15:24] LABS: Alanine Aminotransferase 7 U/L (0-40); Albumin Level 3.5 g/dL (3.5-5.0); Alkaline Phosphatase 105 U/L (39-117); Anion Gap 18 (12-20); Aspartate Amino Transferase 32 U/L (5-37); Bilirubin Total 2.6 mg/dL (0.0-1.0); Blood Urea Nitrogen 15 mg/dL (9-16); Calcium 8.9 mg/dL (8.4-10.2); Carbon Dioxide 14 mmol/L (22-29); Chloride 111 mmol/L (96-108); Estimated Glomerular Filt Rate > 60; Glucose Fasting 123 mg/dL (60-99); Potassium 4.5 mmol/L (3.3-5.1); Sodium 138 mmol/L (135-145); TSH reflex Free T4 2.27 uIU/mL (0.32-4.0); Total Protein 6.5 g/dL (6.5-8.0)
[2024-04-17 19:46] LABS: Creatinine Urine 143.34 mg/dL; Microalbum/Creatinine Ratio Ur 13.2 ug/mg cr (<30)
== END 2024-04-17 10:54 | disposition home or self-care (01) ==
LOC: HO.WFDLDS 10:53
PROVIDERS: Visit Provider Nurse Practitioner Family
DX: Z00.00 Encounter for general adult medical examination without abnormal findings (principal)
CPT/HCPCS: 36415; 80053; 81003; 82043; 82570; 84443; 85025

== ENCOUNTER 2024-04-20 13:22 | Outpatient (AMB) | payer MEDICARE, SELFPAY ==
--- NOTE | 2024-04-20 13:11 | MHC.OFFVIS ---
Intake Visit Reasons: 6m follow up Intake Note: Patient is present for 6M F/U Urology Medication:TAMSULOSIN Antibiotic Allergy:NONE Blood Thinner:ELIQUIS TODAY'S PVR:0ML'S [employer]venile [employer]al Officer Required: No Allergies No Known Allergies Allergy (Verified 04/20/24 13:26) Medication List - Last Reconciled 04/20/24 by Zoraida Gómez MD albuterol sulfate 90 mcg/actuation 2 puffs inhalation Q6H PRN apixaban (Eliquis) 5 mg PO BID atorvastatin 40 mg PO BEDTIME 30 days fluconazole 150 mg PO Q3D 2 doses hydroxyurea 500 mg PO DAILY ketoconazole 2% 1 appl topical BID tamsulosin 0.8 mg (2 x 0.4 mg) PO BEDTIME umeclidinium-vilanterol 62.5-25 mcg/actuation (Anoro Ellipta) 1 inh inhalation DAILY HPI Comments Details: 04/20/24--Louie is a 74-year-old male who is here in follow-up. The patient has been prescribed tamsulosin 0.4 mg 2 tabs at bedtime for obstructive BPH symptoms. In review of chart PSA in 02/19/2023 0.87. The patient states that his urinary stream has improved he is up only 1 time at night to urinate. The patient was unable to give a urine sample today however had labs checked on 04/17/2024 with his PCP. Urinalysis reviewed and was within normal limits, negative for blood or leukocytes. Continue: Tamsulosin 0.8 mg at bedtime, follow-up in 9 months, check PSA. Review of chart: 10/21/23--Louie is here for office cystoscopy. I have reviewed the renal ultrasound 10/13/2023 kidneys within normal limits no hydronephrosis estimated prostate volume 30 mL, bladder wall trabeculations. The patient states that he has noticed in improvement in urinary stream in symptoms with increased dose of the tamsulosin twice a day. Cystoscopy findings mild trabeculations, prostatic urethra nonobstructive. Plan continue tamsulosin twice a day follow-up in 6 months. Monitor postvoid residual. 09/07/23--Louie is a 73-year-old male who is here for evaluation for lower urinary tract symptoms. He complains of a weak stream. He has been prescribed tamsulosin 0.4 mg at bedtime. Comorbidity nicotine dependence. He denies gross hematuria or dysuria. AUA symptom score 16. The patient was unable to give a voided urine sample in the office. Bladder scan PVR is elevated 287 mL. Prostate exam-smooth mildly enlarged. No suspicious nodules. PSA testing reviewed 03/11/2023--0.87 ng/mL Plan: I have discussed evaluation with renal and bladder ultrasound, follow-up office cystoscopy. I have instructed him to increase the tamsulosin to 2 tablets (0.8 mL) daily. [facility] Medical History Stroke COPD (chronic obstructive pulmonary disease) Surgical History H/O right knee surgery Family History Mother Hodgkin disease Father Clotting disorder Social History Housing: House Patient Tobacco Use Status: Current everyday Tobacco user Cigarettes Per Day: 8 Years Smoked: 60 e-Cigarette/Vaping Use: Never Used service: No Current occupational status: retired Cognitive needs: No Hearing needs: No Vision needs: Yes Review of Systems Const All systems reviewed & are unremarkable except as noted in HPI and below Reports no additional complaints Eyes Reports no additional complaints ENT Reports no additional complaints Card Reports no additional complaints Resp Reports no additional complaints GI Reports no additional complaints Reports as per HPI Musc Reports no additional complaints Skin/Breast Reports system reviewed and no additional complaints, except as documented Neuro Reports no additional complaints Psych Reports no additional complaints Endo Reports no additional complaints Ilir/Lymph Reports no additional complaints Aller/Immun Reports no additional complaints Office Procedures Post Void Residual Post Residual Void Post Void Residual (PVR): [id number] Void Residual by ultrasound Results Reviewed Results Reviewed: Date of Service: 10/13/23 US RETROPERITONEAL COMPLETE (RENAL) CLINICAL INFORMATION: Benign prostatic hyperplasia with lower urinary tract symptoms. COMPARISON: None available. TECHNIQUE: Real-time imaging of the kidneys and bladder. FINDINGS: RIGHT KIDNEY: 10.0 x 4.6 x 4.4 cm (SAG x AP x TRV). The kidney is normal in size, contour, and echogenicity. Renal cortical thickness is normal. No calculi or focal parenchymal lesions. No hydronephrosis. LEFT KIDNEY: 9.8 x 6.1 x 4.0 cm (SAG x AP x TRV). The kidney is normal in size, contour, and echogenicity. Renal cortical thickness is normal. No calculi or focal parenchymal lesions. No hydronephrosis. BLADDER: Trabeculated bladder wall. Bilateral ureteral jets are demonstrated. Prevoid bladder volume is 279 mL. Postvoid bladder volume is 142 mL. ADDITIONAL FINDINGS: The prostate measures 30 mL. IMPRESSION: Enlarged prostate measuring 30 mL. No hydronephrosis. Trabeculated bladder wall with post void residual 142 mL. Assessment & Plan Assessment & Plan (1) BPH (benign prostatic hyperplasia): Code(s): N40.0 - Benign prostatic hyperplasia without lower urinary tract symptoms Category: Medical (2) Nicotine dependence: Code(s): F17.200 - Nicotine dependence, unspecified, uncomplicated Category: Medical (3) Incomplete bladder emptying: Code(s): R33.9 - Retention of urine, unspecified Category: Medical (4) BPH loc w urin obs/LUTS: Code(s): N40.1 - Benign prostatic hyperplasia with lower urinary tract symptoms Category: Medical (5) Screening PSA (prostate specific antigen): Code(s): Z12.5 - Encounter for screening for malignant neoplasm of prostate Category: Medical Plan In review of chart PSA in 02/19/2023 0.87. The patient states that his urinary stream has improved he is up only 1 time at night to urinate. Continue: Tamsulosin 0.8 mg at bedtime, follow-up in 9 months, check PSA. Orders: Orders PSA,Total (Free>4and<10) Today N40.1 - Benign prostatic hyperplasia with lower urinary tract symptoms, Z12.5 - Encounter for screening for malignant neoplasm of prostate Medications: Refilled tamsulosin 0.8 mg (2 x 0.4 mg) PO BEDTIME 180 caps 3RF Patient Instructions: The patient had an opportunity to ask questions regarding treatment plan. The patient expressed understanding and agreement with the above treatment plan. The patient is aware they should contact our office by phone for worsening of their current condition or the appearance of new symptoms. Compliance is encouraged with any medications and followup testing that is ordered. It is a privilege to be allowed the opportunity to participate in the urologic care of your patient. If you have any questions or concerns regarding treatment for the above conditions please do not hesitate to contact me. The office telephone contact is [phone]. This note is constructed in part using voice recognition software. While every effort has been made to ensure accuracy wine and spirits clerk errors may have been included. Yours sincerely, Zoraida Gómez MD Coding Level of Care Code Est Pt Level 4 (91640) Diagnoses BPH (benign prostatic hyperplasia) N40.0 Nicotine dependence F17.200 Incomplete bladder emptying R33.9 BPH loc w urin obs/LUTS N40.1 Screening PSA (prostate specific antigen) Z12.5 CPT Codes Post Residual Void - PVR CPT Code: [id number]-[id number] Void Residual by ultrasound ([id number])
== END 2024-04-20 13:45 | disposition home or self-care (01) ==
PROVIDERS: PCP Nurse Practitioner Family; Visit Provider Urology
DX: N40.0 Benign prostatic hyperplasia without lower urinary tract symptoms (principal); F17.200 Nicotine dependence, unspecified, uncomplicated; R33.9 Retention of urine, unspecified; N40.1 Benign prostatic hyperplasia with lower urinary tract symptoms; Z12.5 Encounter for screening for malignant neoplasm of prostate
CPT/HCPCS: 99214

== ENCOUNTER → 2024-04-20 13:22 | Outpatient (BNVA) | payer MEDICARE, SELFPAY | PROVIDERS: PCP Nurse Practitioner Family; Visit Provider Urology | DX: N40.1 Benign prostatic hyperplasia with lower urinary tract symptoms (principal); R33.9 Retention of urine, unspecified; Z12.5 Encounter for screening for malignant neoplasm of prostate; F17.210 Nicotine dependence, cigarettes, uncomplicated | CPT/HCPCS: 51798; 99212 ==

== ENCOUNTER 2024-05-29 12:38 | Outpatient (AMB) | payer MEDICARE, SELFPAY ==
--- NOTE | 2024-05-29 12:39 | A.OFFPC_ITS ---
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 [employer] Required: No Allergies No Known Allergies Allergy (Verified 05/29/24 12:58) Medication List - Last Reviewed 05/31/24 by Luanne Lopez acetaminophen (Tylenol Extra Strength) 1,000 mg PO Q6H PRN albuterol sulfate 90 mcg/actuation 2 puffs inhalation Q6H PRN albuterol sulfate 90 mcg/actuation 2 inhalations inhalation Q6H PRN apixaban (Eliquis) 5 mg PO BID atorvastatin 80 mg PO BEDTIME bisoprolol fumarate 5 mg PO DAILY furosemide 40 mg PO BID hydroxyurea 500 mg PO DAILY ibuprofen (Motrin IB) 200 mg PO Q6H PRN ketoconazole 2% 1 appl topical BID Oxygen Home Use As directed tamsulosin 0.8 mg (2 x 0.4 mg) PO BEDTIME umeclidinium-vilanterol 62.5-25 mcg/actuation (Anoro Ellipta) 1 inh inhalation DAILY Tobacco use date assessed: 05/29/24 Fall risk assessment: 2 + Falls in past year Last assessed Fall Risk: 05/29/24 Dental Screening Dental Screen Date: 05/29/24 Did you have a dental visit in the last 12 months?: No Did you have a dental problem in the last 6 months where you did not have access to dental care?: No Was dental information given to patient?: No (he has no teeth) HPI HPI Comments History of Present Illness Details 74-year-old male, accompanied by his wif e, presents for hospital discharge follow-up. He was hospitalized at [facility] between 04/22/2024 and 04/26/2024 for generalized weakness and a fall related to hypoxia. He was diagnosed and treated for acute hypoxic respiratory failure caused by acute right heart failure due to severe pulmonary hypertension and acute on chronic COPD exacerbation. He was discharged to rehab. He was hospitalized at [facility] between 05/21/2024 and 05/25/2024. ED/inpatient note below: Hospital course ED/Admit The patient is a 74-year-old male with history of polycythemia vera, BPH, tobacco abuse, COPD, atrial fibrillation, CVA, and recently admitted for COPD exacerbation who presented to the ED for evaluation of generalized weakness. He does describe difficulty with ambulation short distances with progressively worsening shortness of breath over 2-week period. He was admitted from 04/22 - 04/26/2024 for management of COPD exacerbation and discharged at rehab. He was started on several new medications including bisoprolol, furosemide, and Farxiga. He did not continue as he reported he never had high BP prior and was urinating too much. He was sent home with oxygen supplementation 1 L via NC. He states he used occasionally during the day and at bedtime. He does admit to an intermittent productive cough, which progressively worse over the last few days. He denies additional URI symptoms such as sore throat, fever, chills, night sweats. He denies chest pain, palpitations, numbness, tingling, weakness. Denies weight loss or weight gain. He did quit smoking after this hospital admission/rehab stay. Otherwise denies abdominal pain, nausea, vomiting, diarrhea, dysuria, headache, vision change, sick contacts. Remaining review of systems negative. Upon evaluation in the emergency room his oxygen saturation noted to be in the 80s. He was placed on 3 L with good effect. Laboratory evaluation did reveal bilirubin 2.6, BNP of 8559, and troponin of 28/25. EKG completed without any ischemic findings. He underwent a chest x-ray revealing interstitial pulmonary edema and pleural effusions. His last admission he did undergo an echocardiogram revealing ejection fraction of 55-60%. There is increased pulmonary artery pressure suggesting underlying lung disease. Previous CT scan in April revealed gallbladder: Cholelithiasis without acute cholecystitis. Inpatient Admitted for above. Managed for congestive heart failure with IV Lasix, improved oxygenation is not on his baseline 2 L O2. Cardiology was consulted during hospitalization, recommendations made for ongoing diuresis patient with very fragile respiratory status. He will be discharged home on Lasix 40 mg twice daily (he presented with noncompliance). Family aware of patient's poor prognosis. He has been able to ambulate short distances with staff, rehab will be recommended or patient is adamantly denying. Will be discharged home with services in place. He should follow-up with his PCP, cardiology/pulmonology within the next month outpatient. He notes that he has been experiencing intermittent brain fog since since yesterday. His notes that he fell last night as he was attempted to get in bed. He landed on his his buttocks. He did not hit his head, neck, or back. She called EMS who helped the patient into his bed. He is currently on 2L of O2 at home which he has been using continuously at home according to his . However, he refused to transport the oxygen from his care to his office visit; he notes that the tank is too bulky. His notes that the patient has been taking his medications as prescribed since his recent hospital discharge. He was receiving skilled services from [facility] twice weekly; services are currently interrupted until the patient has a [id number] encounter with his PCP. His wi fe requests additional help fro ADL/IADL for the patient as she is also an elderly with medical issues. He reports unsteady gait. He uses a walker and a cane in his home and wheelchair for long distances. He has abrasion and bruises to his right forearm from multiple falls before his last hospitalization and last night. His admits that the patient's skin has been yellow for a very long time. He has not smoked cigarettes since 04/21/2024. He notes that he has an appointment with his tailings man, Dr. Zarate, at [facility], next month. He has an appointment scheduled with is mold cleaner, Dr. Aceves, but does not recall when. [facility] Medical History Stroke COPD (chronic obstructive pulmonary disease) Surgical History H/O right knee surgery Family History Mother Hodgkin disease Father Clotting disorder Social History Housing: House Patient Tobacco Use Status: Former Tobacco user Cigarettes Per Day: 8 Years Smoked: 60 e-Cigarette/Vaping Use: Never Used service: No Current occupational status: retired Cognitive needs: No Hearing needs: No Vision needs: Yes Questionnaire PHQ-9 Over the last 2 weeks, how often have you been bothered by any of the following problems? 1. Little interest or pleasure in doing things: nearly every day 2. Feeling down, depressed, or hopeless: more than half the days 3. Trouble falling or staying asleep, or sleeping too much: more than half the d ays 4. Feeling tired or having little energy: more than half the days 5. Poor appetite or overeating: more than half the days 6. Feeling bad about yourself - or that you are a failure or have let yourself or your family down: more than half the days 7. Trouble concentrating on things, such as reading the newspaper or watching television: not at all 8. Moving or speaking so slowly that other people could have noticed. Or the opposite - being so fidgety or restless that you have been moving around a lot more than usual: several days 9. Thoughts that you would be better off or of hurting yourself in some way: not at all Total score: 14 Depression Screening Interpretation: Positive Depression Screening Done: Yes Source: Developed by Drs. Leon Brandon, Maria G Funes, Sotero Ryan and colleagues, with an educational maryana from [employer]. Thrive Questionnaire Date Thrive assessed: 05/29/24 I am a: Parent/Caregiver What is your living situation today?: I choose not to answer this question Within the past 12 months, did the food you bought not last and you didn't have the money to get more?: Never true Within the past 12 months, did you worry whether your food would run out before you got money to buy more?: Never true Do you have trouble paying for medicines?: No Do you have trouble getting transportation to medical appointments?: I choose not to answer this question Do you have trouble paying your heating and electricity bill?: No Do you have trouble taking care of your child, family member or friend?: No Do you have trouble with day-to-day activities such as bathing, preparing meals, shopping, managing finances, etc.?: Yes Are you currently unemployed and looking for a job?: I choose not to answer this question Are you interested in more education?: No Currently or been in a relationship where the following occur: I choose not to answer THRIVE Score: 0 AUDIT C Alcohol Use Questionnaire (AUDIT-C) 1. How often do you have a drink containing alcohol?: Never Total Score: 0 CINDY-7 AMB Questionnaire CINDY-7 Date CINDY - 7 assessed: 02/15/23 Source: Developed by Drs. Leon Brandon, Maria G Funes, Sotero Ryan and colleagues, with an educational maryana from [employer]. Review of Systems Const Details: Const Denies chills, Denies fatigue, Denies fever(s), Denies headache(s) and Denies weakness ENT Denies dizziness and Denies headache(s) Card Denies chest pain, Denies lightheadedness, Denies dyspnea and Denies other (Palpitations) Resp Denies cough, Denies dyspnea, Denies wheezing and Denies other ( shortness of breath) GI Denies abdominal pain, Denies melena, Denies hematochezia, Denies change in bowel habits, Denies dyspepsia and Denies nausea Denies hematuria and Denies dysuria Musc Denies abnormal gait, Denies myalgias, Denies arthralgias, Denies numbness and Denies tingling Skin/Breast Reports as per HPI Neuro Reports abnormal gait, Denies dizziness, Denies headache(s), Denies memory loss, Denies numbness, Denies Sensory deficit (Neuro), Denies tingling and Denies weakness Psych Denies anxiety, Denies depression, Denies memory loss Endo Denies cold intolerance, Denies fatigue, Denies heat intolerance, Denies polydipsia and Denies polyuria Aller/Immun Denies wheezing Physical exam (Primary Care) Vital Signs: Last Vital Signs Temp 97.0 F 05/29/24 12:47 Pulse 100 05/29/24 13:44 Resp 16 05/29/24 12:47 BP 92/67 05/29/24 12:47 Pulse Ox 91 L 05/29/24 13:44 Oxygen Delivery Method Room Air 05/29/24 13:44 Tobacco/Smoking Status: Tobacco use Status Tobacco use date assessed 05/29/24 05/29/24 12:53 Patient Tobacco Use Status Former Tobacco user 05/29/24 12:53 e-Cigarette/Vaping Use Never Used 05/29/24 12:43 PHQ-9: PHQ-9 Score PHQ-9: Total score 14 05/31/24 13:46 Depression Screening Interpretation: Positive Thrive Assessment: Date of Thrive Assessment Date Thrive assessed 05/29/24 05/29/24 12:43 Currently or been in a relationship where the following occur: I choose not to answer Const Other: General: no acute distress and well developed Nutritional Appearance: well nourished Orientation/consciousness: patient oriented x3 HENMT Head: Yes normocephalic and Yes atraumatic Eyes General: appearance normal, both eyes and all related structures Pupils: Equal, round and reactive pupils present EOM: EOMs intact bilaterally Resp Effort & Inspection: normal respiratory effort Auscultation: clear to auscultation bilaterally Cardio Rate: regular rate Rhythm: regular rhythm Heart sounds: S1 normal heart sound present, S2 normal heart sound present, no gallops, no murmurs and no rubs GI Palpation (GI): No Abdominal aortic bruit present, Soft to palpation, nontender, No hepatosplenomegaly present and No Rebound tenderness present Auscultation: normal bowel sounds General: Yes no CVA tenderness Back/Spine/Pelvis Back: no CVA tenderness Cervical Spine: cervical ROM normal and No Cervical spine tenderness Thoracic/Lumbar Spine: thoraco-lumbar ROM normal, No pain with thoraco-lumbar ROM, No thoracic spinal tenderness and No lumbar spinal tenderness Extrem General: Yes normal to inspection, No edema and No calf tenderness Skin General: warm and dry. Normal skin color. Normal skin turgor. Skin is yellow, especially facial skin Lesions: no lesions Rashes: no rashes Trauma: no lacerations or abrasions Wounds: Bruises and abrasions to the right forearm Nails: normal Neuro General: patient oriented x3, gait normal and no focal neuro deficit Cranial nerves: Yes Equal, round and reactive pupils present Cognition (Neuro): normal cognition Gait exam (Neuro): Normal gait present Sensory Exam: No Sensory deficit (Neuro) Psych Appearance: grossly normal Affect: normal affect Attitude: cooperative Thought process: Normal thought process present Coding Level of Care Code Est Pt Level 4 (26191) Diagnoses Hyperbilirubinemia E80.6 Jaundice R17 Hypokalemia E87.6 CHF (congestive heart failure) I50.9 COPD (chronic obstructive pulmonary disease) J44.9 Unsteady gait R26.81 Brain fog R41.89 Abrasion of right forearm S50.811A Hospital discharge follow-up Z09 Assessment & Plan Assessment & Plan (1) Hyperbilirubinemia: Code(s): E80.6 - Other disorders of bilirubin metabolism Category: Medical Plan: Recent bilirubin level is 3.7. Skin is yellow, especially facial skin. Cholestasis is possible. Will recheck bilirubin level and make changes as needed. (2) Jaundice: Code(s): R17 - Unspecified jaundice Category: Medical Plan: Plan as above. (3) Hypokalemia: Code(s): E87.6 - Hypokalemia Category: Medical Plan: Recent potassium level is 3.1. Will recheck potassium level and make changes as needed (4) CHF (congestive heart failure): Code(s): I50.9 - Heart failure, unspecified Category: Medical Plan: Continue to take Lasix 40 mg twice daily. Recent BMP is 8559. Will recheck BMP levels. (5) COPD (chronic obstructive pulmonary disease): Code(s): J44.9 - Chronic obstructive pulmonary disease, unspecified Category: Medical Plan: He experiences shortness of breath with mild exertion. Continue with 2 L continue oxygen via nasal cannula. Encouraged to use oxygen all time. Continue to avoid smoking. (6) Unsteady gait: Code(s): R26.81 - Unsteadiness on feet Category: Medical Plan: Instructed on safety to prevent fall. Advised to use assistive devices for ambulation at all times. (7) Brain fog: Code(s): R41.89 - Other symptoms and signs involving cognitive functions and awareness Category: Medical Plan: He has been experiencing intermittent brain fog since yesterday. Likely due to poor oxygenation. Encouraged to use oxygen at all times. Will check CBC. (8) Abrasion of right forearm: Code(s): S50.811A - Abrasion of right forearm, initial encounter Category: Medical Plan: Multiple bruises and abrasions of the right forearm from multiple falls. Advi sed to keep abrasions clean with soap and water. May apply antibiotic ointment as needed. Instructed on safety to prevent fall. (9) Hospital discharge follow-up: Code(s): Z09 - Encounter for follow-up examination after completed treatment for conditions other than malignant neoplasm Category: Medical Plan: Patient assist. Education provided. Labs ordered. Will resume fdc services and order [employer]IST[employer] services to help with ADLs/IADLs. [id number] encounter for [facility] signed. Follow-up for an extended physical exam in 2 months or sooner with symptoms or concerns. Verbalized understanding and agreed with treatment plan. Orders: Orders Comprehensive Met. Panel 05/29/24 E80.6 - Other disorders of bilirubin metabolism, E87.6 - Hypokalemia Complete Blood Count no Diff 05/29/24 R41.89 - Other symptoms and signs involving cognitive functions and awareness B Type Natriuretic Peptide 05/29/24 I50.9 - Heart failure, unspecified
[2024-05-29 12:47] VITALS: BP 92/67; PULSE 106; RESP 16; TEMP 36.1; O2SAT 88
[2024-05-29 13:44] VITALS: PULSE 100; O2SAT 91
== END 2024-05-29 13:54 | disposition home or self-care (01) ==
PROVIDERS: PCP Nurse Practitioner Family; Visit Provider Nurse Practitioner Family
DX: I50.9 Heart failure, unspecified (principal); J44.9 Chronic obstructive pulmonary disease, unspecified; E80.6 Other disorders of bilirubin metabolism; R17 Unspecified jaundice; E87.6 Hypokalemia; R26.81 Unsteadiness on feet; R41.89 Other symptoms and signs involving cognitive functions and awareness; S50.811A Abrasion of right forearm, initial encounter; Z09 Encounter for follow-up examination after completed treatment for conditions other than malignant neoplasm

== ENCOUNTER → 2024-05-29 12:38 | Outpatient (BNVA) | payer MEDICARE, SELFPAY | PROVIDERS: PCP Nurse Practitioner Family; Visit Provider Nurse Practitioner Family | DX: I50.9 Heart failure, unspecified (principal); J44.9 Chronic obstructive pulmonary disease, unspecified; E80.6 Other disorders of bilirubin metabolism; R17 Unspecified jaundice; E87.6 Hypokalemia; R26.81 Unsteadiness on feet; R41.89 Other symptoms and signs involving cognitive functions and awareness; S50.811A Abrasion of right forearm, initial encounter; I27.20 Pulmonary hypertension, unspecified; R53.1 Weakness; Z09 Encounter for follow-up examination after completed treatment for conditions other than malignant neoplasm; Z99.81 Dependence on supplemental oxygen; Z87.891 Personal history of nicotine dependence; Z91.81 History of falling; Z79.899 Other long term (current) drug therapy | CPT/HCPCS: 96127; 99212 ==

== ENCOUNTER 2024-05-29 13:58 | Outpatient (REF) | payer MEDICARE, SELFPAY ==
[2024-05-29 17:59] LABS: Hematocrit 47.8 % (42.0-52.0); Mean Corpuscular HGB Conc 33.5 g/dl (31.0-36.0); Mean Corpuscular Hemoglobin 36.1 pg (27.0-33.0); Mean Corpuscular Volume 107.9 fL (80.0-98.0); Mean Platelet Volume 10.5 fL (9.4-12.4); Platelet Count 333 X10*3/uL (160-400); Red Blood Count 4.43 X10*6/uL (4.60-5.80); Red Cell Distribution Width 17.2 % (11.0-16.0); White Blood Count 7.9 X10*3/uL (4.8-10.8)
[2024-05-29 18:22] LABS: Alanine Aminotransferase 19 U/L (0-40); Albumin Level 3.5 g/dL (3.5-5.0); Alkaline Phosphatase 107 U/L (39-117); Anion Gap 16 (12-20); Aspartate Amino Transferase 47 U/L (5-37); Bilirubin Total 3.5 mg/dL (0.0-1.0); Blood Urea Nitrogen 24 mg/dL (9-16); Calcium 9.5 mg/dL (8.4-10.2); Carbon Dioxide 28 mmol/L (22-29); Chloride 98 mmol/L (96-108); Estimated Glomerular Filt Rate 47; Glucose Random 158 mg/dL (60-115); Potassium 3.8 mmol/L (3.3-5.1); Sodium 138 mmol/L (135-145); Total Protein 7.5 g/dL (6.5-8.0)
[2024-05-29 19:03] LABS: B Type Natriuretic Peptide 743 pg/mL (<100)
== END 2024-05-29 13:59 | disposition home or self-care (01) ==
LOC: HO.WFDLDS 13:58
PROVIDERS: Visit Provider Nurse Practitioner Family
DX: R41.89 Other symptoms and signs involving cognitive functions and awareness (principal); E80.6 Other disorders of bilirubin metabolism; E87.6 Hypokalemia; I50.9 Heart failure, unspecified
CPT/HCPCS: 36415; 80053; 83880; 85027